=== PATIENT | female | born 1940 | race Caucasian/White ===

== ENCOUNTER 2016-07-10 18:43 | Inpatient (IN) | payer MEDICARE, BC ==
[2016-07-10] MEDS ORDERED: Sodium Chloride 0.9% 5 ML Syringe FLUSH PRN (18:55)
--- NOTE | 2016-07-10 19:13 | EDM.PDOC ---
ED HISTORY OF PRESENT ILLNESS - General Chief Complaint: Chest Pain Stated Complaint: CHEST PAINS Time Seen by Provider: 07/10/16 18:55 Source of Information: Reports: Patient, EMS, EMS notes reviewed History Limitations: Reports: No limitations - History of Present Illness INITIAL COMMENTS - FREE TEXT/NARRATIVE: PT STATES AT 1700 TODAY SHE DEVELOPED PAIN IN LEFT LEG AND WAS HAVING HARD TIME WALKING. CALLED DAUGHTER WHO CONTACTED EMS. WHEN EMS ARRIVED TO HOUSE, PT THEN DEVELOPED CHEST PAIN AND SOB. DESCRIBED HEAVY AND CONSTANT. RELIEVED WITH NITRO. H/O CVA AND LEFT SIDED WEAKNESS. DAUGHTER AT BEDSIDE. DENIES FEVER, FALL , N/V/D, HANSEN, BLURRY VISION, OR DIZZINESS Symptom Onset Date: 07/10/16 Symptom Onset Time: 17:00 Timing/Duration: Reports: Intermittent Severity: mild Location, General: Reports: chest Quality: Reports: Pressure Improves with: Reports: Medication Worsens with: Reports: None Associated Symptoms (General): Reports: no other symptoms Treatments FINANCE ASSISTANT: Reports: Nitroglycerin - Related Data Allergies/ADRs: Allergies Allergy/AdvReac Type Severity Reaction Status Date / Time Latex, Natural Rubber Allergy Rash Verified 07/10/16 19:39 Sulfa (Sulfonamide Allergy Airway Verified 07/10/16 19:39 Antibiotics) Tightness Home Meds: Home Meds Alendronate [Fosamax] 70 mg PO TH 09/20/14 [History] Cholecalciferol (Vitamin D3) [Vitamin D3] 2,000 unit PO DAILY 09/20/14 [History] DULoxetine [Cymbalta] 30 mg PO BID 09/20/14 [History] Docusate Sodium [Colace] 200 mg PO DAILY 09/20/14 [History] atorvaSTATin [Lipitor] 60 mg PO DAILY 09/20/14 [History] LORazepam [Ativan] 0.25 mg PO BID PRN #0 tablet 10/05/14 [Rx] Calcium Carbonate/Vitamin D3 [Calcium 600-Vit D3 800 Tablet] 1 each PO DAILY [History] Aspirin [Halfprin] 81 mg PO BRK 11/07/15 [History] Metoprolol Succinate [Toprol XL 50mg] 1 tab PO DAILY 11/07/15 [History] Misoprostol 200 mcg PO BID 11/07/15 [History] busPIRone [Buspar] 5 mg PO BID 11/07/15 [History] rOPINIRole HCl [Requip] 0.25 mg PO BID 11/07/15 [History] Baclofen [Lioresal] 10 mg PO BEDTIME PRN 02/29/16 [History] Diclofenac Sodium [Voltaren] 50 mg PO BID 02/29/16 [History] Loratadine/Pseudoephedrine [Loratadine-Pseudoephed 10-240] 1 tab PO BEDTIME PRN 02/29/16 [History] Nitroglycerin [Nitrostat] 0.4 mg SL ASDIRECTED PRN 02/29/16 [History] Omeprazole 40 mg PO ACBREAKFAST 02/29/16 [History] oxyCODONE HCl/Acetaminophen [oxyCODONE-Acetaminophen 5-325] 1 tab PO DAILY 02/28 [History] Furosemide [Lasix] 20 mg PO DAILY 07/10/16 [History] Past Medical History HEENT History: Reports: Cataract, Impaired vision, Other (see below) Other HEENT History: 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 Endocrine/Metabolic History: Reports: Osteoporosis Dermatologic History: Reports: None - Infectious Disease History Infectious Disease History: Reports: Chicken pox, Measles, Mumps, Shingles - Past Surgical History Head Surgeries/Procedures: Reports: None HEENT Surgical History: Reports: Cataract surgery Cardiovascular Surgical History: Reports: Coronary artery stent Respiratory Surgical History: Reports: None GI Surgical History: Reports: Appendectomy, Colonoscopy, EGD Female Surgical History: Reports: Hysterectomy, Salpingo-oophorectomy, Other (see below) Other Female Surgeries/Procedures: bladder repair Neurological Surgical History: Reports: None Musculoskeletal Surgical History: Reports: Arthroscopic procedure, Knee replacement Dermatological Surgical History: Reports: None Social & Family History - Family History Family Medical History: Unobtainable HEENT: Reports: None Cardiac: Reports: Hypertension (Son hypertension,) Respiratory: Reports: None GI: Reports: None : Reports: None OBGYN: Reports: None Musculoskeletal: Reports: Osteoporosis (Son) Neurological: Reports: None Psychiatric: Reports: None Endocrine/Metabolic: Reports: None Hematologic: Reports: None Immunologic: Reports: None Dermatologic: Reports: None Oncologic: Reports: Breast (Brother breast cancer,) - Tobacco Use Smoking Status *Q: Never Smoker Second Hand Smoke Exposure: Yes - Caffeine Use Caffeine Use: Reports: Coffee, Soda, Tea - Alcohol Use Days Per Week of Alcohol Use: 1 Number of Drinks Per Day: 1 Total Drinks Per Week: 1 - Recreational Drug Use Recreational Drug Use: No - Living Situation & Occupation Living situation: Reports: , alone ED ROS GENERAL - Review of Systems Review Of Systems: ROS reveals no pertinent complaints other than HPI. Constitutional: Reports: no symptoms HEENT: Reports: No symptoms Respiratory: Reports: No Symptoms Cardiovascular: Reports: Chest pain Endocrine: Reports: no symptoms GI/Abdominal: Reports: No symptoms : Reports: no symptoms Musculoskeletal: Reports: leg pain Skin: Reports: no symptoms Neurological: Reports: Weakness (LEFT SIDED OF CHRONIC NATURE) Psychiatric: Reports: No symptoms Hematologic/Lymphatic: Reports: no symptoms Immunologic: Reports: no symptoms ED EXAM, GENERAL - Physical Exam Exam: See Below Exam Limited By: No limitations General Appearance: alert, WD/WN, no apparent distress Eye Exam: bilateral eye: normal inspection Throat/Mouth: Normal inspection, Normal oropharynx, No airway compromise Head: atraumatic, normocephalic Respiratory/Chest: no respiratory distress, lungs clear, normal breath sounds, no accessory muscle use, chest non-tender Cardiovascular: regular rate, rhythm, no murmur GI/Abdominal: normal bowel sounds, soft, non tender, no organomegaly, no distention, no abnormal bruit, no mass Back Exam: normal inspection. No: CVA tenderness (L), CVA tenderness (R) Extremities: normal inspection, no pedal edema Neurological: alert, oriented, normal cognition Psychiatric: normal affect, normal mood Skin Exam: Warm, Dry, Intact, Normal color, No rash Lymphatic: no adenopathy EKG INTERPRETATION EKG Date: 07/10/16 Time: 19:10 Rhythm: NSR Rate (beats/min): 85 [place]: normal P-wave: present QRS: normal ST-T: normal QT: normal Course - Vital Signs Last Recorded V/S: Last Vital Signs Temp 99.0 F 07/10/16 18:49 Pulse 89 07/10/16 18:49 Resp 18 07/10/16 18:49 BP 124/29 L 07/10/16 18:49 Pulse Ox 97 07/10/16 18:49 - Orders/Labs/Meds Orders: Active Orders 24 hr Category Date Time Status Cardiac Monitoring [RC] . DIRECTED Care 07/10/16 18:55 Ordered EKG Documentation Completion [RC] STAT Care 07/10/16 18:55 Ordered Peripheral IV Care [RC] . DIRECTED Care 07/10/16 18:56 Ordered Chest 1V Frontal [CR] Stat Exams 07/10/16 18:56 Ordered CBC WITH AUTO DIFF [HEME] Stat Lab 07/10/16 18:55 Ordered CKMB [CHEM] Stat Lab 07/10/16 18:55 Ordered COMPREHENSIVE METABOLIC PN,CMP [CHEM] Stat Lab 07/10/16 18:56 Ordered INR,PT,PROTHROMBIN TIME [COAG] Stat Lab 07/10/16 18:55 Ordered LIPASE [CHEM] Stat Lab 07/10/16 18:55 Ordered PTT,PARTIAL THROMBOPLSTIN TIME [COAG] Stat Lab 07/10/16 18:55 Ordered TROPONIN I [CHEM] Stat Lab 07/10/16 18:55 Ordered Sodium Chloride 0.9% [Syrex Flush] Med 07/10/16 18:55 Ordered 5 ml FLUSH Q8HR PRN Peripheral IV Insertion Adult [OM.PC] Stat Oth 07/10/16 18:55 Ordered Saline Lock Insert [OM.PC] Stat Oth 07/10/16 18:55 Ordered Medication Orders Sodium Chloride (Syrex Flush) 5 ml FLUSH Q8HR PRN PRN Reason: Keep Vein Open Meds: Medications Generic Name Dose Route Start Last Admin Trade Name Freq PRN Reason Stop Dose Admin Sodium Chloride 5 ml 07/10/16 18:55 Syrex Flush FLUSH Q8HR PRN Keep Vein Open - Radiology Interpretation Free Text/Narrative:: CXR NEGATIVE FOR ACUTE PROCESS - Re-Assessments/Exams Free Text/Narrative Re-Assessment/Exam: 07/10/16 19:58 PT AFEBRILE, NONTOXIC APPEARING, VSS, PAIN RESOLVED. DISCUSSED CASE WITH DR NEWMAN. WILL ADMIT OBS AND FOLLOW Departure - Departure Time of Disposition: 20:00 Disposition: Home, Self-Care 01 Condition: good Clinical Impression: Atypical chest pain, Chest pain of uncertain etiology Forms: ED Department Discharge - My Orders Last 24 Hours: My Active Orders 07/10/16 18:55 Cardiac Monitoring [RC] . DIRECTED EKG Documentation Completion [RC] STAT CBC WITH AUTO DIFF [HEME] Stat CKMB [CHEM] Stat INR,PT,PROTHROMBIN TIME [COAG] Stat LIPASE [CHEM] Stat PTT,PARTIAL THROMBOPLSTIN TIME [COAG] Stat TROPONIN I [CHEM] Stat Sodium Chloride 0.9% [Syrex Flush] 5 ml FLUSH Q8HR PRN Peripheral IV Insertion Adult [OM.PC] Stat Saline Lock Insert [OM.PC] Stat 07/10/16 18:56 Peripheral IV Care [RC] . DIRECTED Chest 1V Frontal [CR] Stat COMPREHENSIVE METABOLIC PN,CMP [CHEM] Stat - Assessment/Plan Last 24 Hours: My Active Orders 07/10/16 18:55 Cardiac Monitoring [RC] . DIRECTED EKG Documentation Completion [RC] STAT CBC WITH AUTO DIFF [HEME] Stat CKMB [CHEM] Stat INR,PT,PROTHROMBIN TIME [COAG] Stat LIPASE [CHEM] Stat PTT,PARTIAL THROMBOPLSTIN TIME [COAG] Stat TROPONIN I [CHEM] Stat Sodium Chloride 0.9% [Syrex Flush] 5 ml FLUSH Q8HR PRN Peripheral IV Insertion Adult [OM.PC] Stat Saline Lock Insert [OM.PC] Stat 07/10/16 18:56 Peripheral IV Care [RC] . DIRECTED Chest 1V Frontal [CR] Stat COMPREHENSIVE METABOLIC PN,CMP [CHEM] Stat Assessment:: CHEST PAIN Plan: ADMIT OBS TO DR NEWMAN
[2016-07-10 19:41] LABS: CHLORIDE,CL 102 mmol/L (98-115); SODIUM,NA 140 mmol/L (136-145)
[2016-07-10] MEDS: Diclofenac Sodium 50 MG Tab.EC PO SCH ×2 (20:16→22:17)
[2016-07-10] MEDS ORDERED: Loratadine 10 MG Tab PO PRN (21:11)
[2016-07-10] MEDS ORDERED: Baclofen 10 MG Tab PO PRN (21:11)
[2016-07-10] MEDS: Aspirin 81 MG Tab.EC PO SCH (22:18)
[2016-07-11] MEDS: LORazepam 0.5 MG Tab PO PRN ×2 (00:48→17:44)
[2016-07-11] MEDS: Acetaminophen 325 MG Tab PO PRN ×2 (01:17→18:20)
[2016-07-11] MEDS: Cholecalciferol (Vitamin D3) 1,000 Unit Tab PO SCH (08:27)
[2016-07-11] MEDS: Aspirin 81 MG Tab.EC PO SCH (08:27)
[2016-07-11] MEDS: DULoxetine 30 MG Cap PO SCH ×2 (08:28→20:29)
[2016-07-11] MEDS: Docusate Sodium 100 MG Cap PO SCH (08:28)
[2016-07-11] MEDS: Calcium Citrate/Vitamin D3 315 MG-250 Unit Tab PO SCH (08:28)
[2016-07-11] MEDS: Diclofenac Sodium 50 MG Tab.EC PO SCH (08:33)
[2016-07-11] MEDS ORDERED: Nitroglycerin 0.4 MG Tab.SL SL PRN (08:56)
[2016-07-11] MEDS ORDERED: Acetaminophen/oxyCODONE 325-5 MG Tab PO SCH (09:00)
[2016-07-11] MEDS ORDERED: [UNRECOGNIZED DRUG - OTHER] PO SCH (09:00)
[2016-07-11] MEDS ORDERED: Furosemide 20 MG Tab PO SCH (09:00)
[2016-07-11] MEDS ORDERED: CALCIUM CARBONATE PO SCH (09:00)
[2016-07-11] MEDS ORDERED: VITAMIN D3 PO SCH (09:00)
[2016-07-11] MEDS ORDERED: Non-Formulary Medication 1 Each (Cholecalciferol (Vitamin D3) [Vitamin D3] 2,000 UNIT) PO SCH (09:00)
--- NOTE | 2016-07-11 10:18 | PCM.HP ---
H&P History of Present Illness - General Date of Service: 07/11/16 Admit Problem/Dx: Admission Diagnosis/Problem Admission Diagnosis/Problem Chest pain Source of Information: Patient, Old records, RN History Limitations: Reports: No limitations - History of Present Illness Initial Comments - Free Text/Narative: this 76-year-old female patient with an extensive cardiac history with extensive myocardial infarction approximately 2 years ago was transported by ED and was admitted due to left leg pain. She actually called the annulus department yesterday due to pain in her left leg and she was having more of a difficult time walking--she walks with a walker due to history of CVA--however upon ambulance arrival she started having some shortness of breath and chest pain. She described her chest pain is quite heavy constant eventually relieved with nitroglycerin. 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 She had no nausea or vomiting or diarrhea or any dizziness or blurred vision. She was admitted on telemetry.her initial EKG showed sinus rhythm with deep Q waves in inferior leads likely old infarct. Chest x-ray was no acute findings. Middle Chest Pain Score (Numeric/FACES): 7 - Related Data Allergies/Adverse Reactions: Allergies Allergy/AdvReac Type Severity Reaction Status Date / Time Latex, Natural Rubber Allergy Rash Verified 07/10/16 19:39 Sulfa (Sulfonamide Allergy Airway Verified 07/10/16 19:39 Antibiotics) Tightness Home Medications: Home Meds Alendronate [Fosamax] 70 mg PO TH 09/20/14 [History] Cholecalciferol (Vitamin D3) [Vitamin D3] 2,000 unit PO DAILY 09/20/14 [History] DULoxetine [Cymbalta] 30 mg PO BID 09/20/14 [History] Docusate Sodium [Colace] 200 mg PO DAILY 09/20/14 [History] atorvaSTATin [Lipitor] 60 mg PO DAILY 09/20/14 [History] LORazepam [Ativan] 0.25 mg PO BID PRN #0 tablet 10/05/14 [Rx] Calcium Carbonate/Vitamin D3 [Calcium 600-Vit D3 800 Tablet] 1 each PO DAILY [History] Aspirin [Halfprin] 81 mg PO BRK 11/07/15 [History] Metoprolol Succinate [Toprol XL 50mg] 75 tab PO DAILY 11/07/15 [History] Misoprostol 200 mcg PO BID 11/07/15 [History] busPIRone [Buspar] 5 mg PO BID 11/07/15 [History] rOPINIRole HCl [Requip] 0.25 mg PO BID 11/07/15 [History] Baclofen [Lioresal] 10 mg PO BEDTIME PRN 02/29/16 [History] Diclofenac Sodium [Voltaren] 50 mg PO BID 02/29/16 [History] Loratadine/Pseudoephedrine [Loratadine-Pseudoephed 10-240] 1 tab PO BEDTIME PRN 02/29/16 [History] Nitroglycerin [Nitrostat] 0.4 mg SL ASDIRECTED PRN 02/29/16 [History] Omeprazole 40 mg PO ACBREAKFAST 02/29/16 [History] oxyCODONE HCl/Acetaminophen [oxyCODONE-Acetaminophen 5-325] 1 tab PO DAILY 02/28 [History] Furosemide [Lasix] 20 mg PO DAILY 07/10/16 [History] Past Medical History HEENT History: Reports: Cataract, Impaired vision, Other (see below) Other HEENT History: 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 Endocrine/Metabolic History: Reports: Osteoporosis Dermatologic History: Reports: None - Infectious Disease History Infectious Disease History: Reports: Chicken pox, Measles, Mumps, Shingles - Past Surgical History Head Surgeries/Procedures: Reports: None HEENT Surgical History: Reports: Cataract surgery Cardiovascular Surgical History: Reports: Coronary artery stent Respiratory Surgical History: Reports: None GI Surgical History: Reports: Appendectomy, Colonoscopy, EGD Female Surgical History: Reports: Hysterectomy, Salpingo-oophorectomy, Other (see below) Other Female Surgeries/Procedures: bladder repair Neurological Surgical History: Reports: None Musculoskeletal Surgical History: Reports: Arthroscopic procedure, Knee replacement Dermatological Surgical History: Reports: None Social & Family History - Family History HEENT: Reports: None Cardiac: Reports: Hypertension Respiratory: Reports: None GI: Reports: None : Reports: None OBGYN: Reports: None Musculoskeletal: Reports: Osteoporosis Neurological: Reports: None Psychiatric: Reports: None Endocrine/Metabolic: Reports: None Hematologic: Reports: None Immunologic: Reports: None Dermatologic: Reports: None Oncologic: Reports: Breast - Tobacco Use Smoking Status *Q: Never Smoker Second Hand Smoke Exposure: Yes - Caffeine Use Caffeine Use: Reports: Coffee, Soda, Tea - Alcohol Use Days Per Week of Alcohol Use: 1 Number of Drinks Per Day: 1 Total Drinks Per Week: 1 - Recreational Drug Use Recreational Drug Use: No - Living Situation & Occupation Living situation: Reports: , alone H&P Review of Systems - Review of Systems: Review Of Systems: See Below General: Reports: no symptoms HEENT: Reports: no symptoms Pulmonary: Denies: Shortness of Breath, Pleuritic Chest Pain, Cough Cardiovascular: Reports: blood pressure problem Gastrointestinal: Reports: Nausea. Denies: Vomiting Genitourinary: Reports: no symptoms Musculoskeletal: Reports: leg pain (left leg) Skin: Reports: no symptoms Psychiatric: Reports: anxiety Neurological: Reports: Pre-Existing Deficit, Difficulty Walking, Gait Disturbance. Denies: Numbness, Tingling Hematologic/Lymphatic: Reports: easy bleeding, easy bruising Immunologic: Reports: no symptoms Exam - Exam Exam: See Below - Vital Signs Vital Signs: Last Vital Signs Temp 97.8 F 07/11/16 06:24 Pulse 91 07/11/16 06:24 Resp 18 07/11/16 06:24 BP 80/55 L 07/11/16 06:24 Pulse Ox 96 07/11/16 07:30 Weight: 139 lb 6.4 oz - Exam Quality Assessment: No: supplemental oxygen General: alert, oriented, mild distress HEENT: Conjunctiva clear Neck: supple, trachea midline, 2 Lungs: Clear to auscultation, Normal respiratory effort Cardiovascular: regular rate, regular rhythm, normal S1, normal S2 Abdomen: soft. No: distention, rigidity (Female) Exam: Deferred Peripheral Pulses: 2+: radial (L), radial (R) Skin: warm, dry, intact Neurological: sensation intact, other (left-sided) Neuro Extensive - Mental Status: alert, oriented x3, other (Slightly slower speech, chronic for her to do cerebral dyskinesia), dysarthria (Chronic for her ).) Psychiatric: alert, anxious - Patient Data Lab Results last 24 hrs: Laboratory Results - last 24 hr 07/11/16 07/11/16 Range/Units 09:10 09:10 D-Dimer, Quantitative 2290 H (<400) ng/mL Troponin I 0.09 H* (0.00-0.070) ng/mL Result Diagrams: 07/10/16 19:00 07/10/16 19:00 *Q Meaningful Use (ADM) - VTE *Q VTE Criteria *Q: - Stroke *Q Stroke Criteria *Q: - AMI *Q AMI Criteria *Q: Problem List Initiated/Reviewed/Updated: Yes Orders Last 24hrs: Active Orders 24 hr Category Date Time Status Patient Status [ADT] Routine ADT 07/11/16 10:07 Ordered Intake and Output [RC] 0600,1400,2200 Care 07/10/16 21:22 Active Oxygen Therapy [RC] PRN Care 07/10/16 21:20 Active Up to Chair [RC] .PRN Care 07/10/16 21:20 Active VTE/DVT Education [RC] PER UNIT ROUTINE Care 07/10/16 21:20 Active Vital Signs [RC] 0300,0700,1100,1500,1900,2300 Care 07/10/16 21:20 Active 2 Gram Sodium Diet [DIET] Diet 07/11/16 Breakfast Active Chest w Cont [CT] Routine Exams 07/11/16 09:51 Ordered Acetaminophen [Tylenol] Med 07/11/16 00:40 Active 650 mg PO Q4H PRN Acetaminophen/oxyCODONE [Percocet 325-5 MG] Med 07/11/16 09:00 Ordered 1 tab PO DAILY Alendronate [Fosamax] Med 07/13/16 08:00 Active 70 mg PO Th@0800 Aspirin [Halfprin] Med 07/10/16 21:15 Active 81 mg PO BRK Baclofen [Lioresal] Med 07/10/16 21:11 Active 10 mg PO BEDTIME PRN Calcium Citrate/Vitamin D3 [Calcium Citrate + D] Med 07/11/16 09:00 Active 1 tab PO DAILY Cholecalciferol (Vitamin D3) [Vitamin D3] Med 07/11/16 09:00 Active 2,000 units PO DAILY DULoxetine [Cymbalta] Med 07/11/16 09:00 Active 30 mg PO BID Docusate Sodium [Colace] Med 07/11/16 09:00 Active 200 mg PO DAILY Furosemide [Lasix] Med 07/11/16 09:00 Active 20 mg PO DAILY LORazepam [Ativan] Med 07/10/16 21:11 Active 0.25 mg PO BID PRN Loratadine/Pseudoephedrine [Loratadine-Pseudoephed 10- Med 07/10/16 21:11 Pending 240] 1 tab PO BEDTIME PRN Metoprolol Succinate [Toprol XL] Med 07/11/16 09:00 Active 75 mg PO DAILY Misoprostol Med 07/11/16 09:00 Ordered 200 mcg PO BID Nitroglycerin [Nitrostat] Med 07/11/16 08:56 Ordered 0.4 mg SL ASDIRECTED PRN Omeprazole Med 07/11/16 09:30 Active 40 mg PO ACBREAKFAST Ondansetron [Zofran] Med 07/11/16 08:58 Active 4 mg IVPUSH Q4H PRN busPIRone [Buspar] Med 07/11/16 09:00 Ordered 5 mg PO BID rOPINIRole [Requip] Med 07/11/16 09:00 Active 0.25 mg PO BID Medication Orders Acetaminophen (Tylenol) 650 mg PO Q4H PRN PRN Reason: Pain Last Admin: 07/11/16 01:17 Dose: 650 mg Alendronate Sodium (Fosamax) 70 mg PO Th@0800 [facility] Aspirin (Halfprin) 81 mg PO BRK [facility] Last Admin: 07/11/16 08:27 Dose: 81 mg Admin: 07/10/16 22:18 Dose: Not Given Baclofen (Lioresal) 10 mg PO BEDTIME PRN PRN Reason: Muscle Spasm Last Admin: 07/10/16 22:00 Dose: 10 mg Buspirone HCl (Buspar) 5 mg PO BID [facility] Calcium Citrate (Calcium Citrate + D) 1 tab PO DAILY [facility] Last Admin: 07/11/16 08:28 Dose: 1 tab Cholecalciferol (Vitamin D3) 2,000 units PO DAILY [facility] Last Admin: 07/11/16 08:27 Dose: 2,000 units Diclofenac Sodium (Voltaren) 50 mg PO BID [facility] Last Admin: 07/11/16 08:33 Dose: 50 mg Admin: 07/10/16 22:17 Dose: 50 mg Admin: 07/10/16 20:16 Dose: Not Given Docusate Sodium (Colace) 200 mg PO DAILY [facility] Last Admin: 07/11/16 08:28 Dose: 200 mg Duloxetine HCl (Cymbalta) 30 mg PO BID [facility] Last Admin: 07/11/16 08:28 Dose: 30 mg Furosemide (Lasix) 20 mg PO DAILY [facility] Last Admin: 07/11/16 08:28 Dose: 20 mg Lorazepam (Ativan) 0.25 mg PO BID PRN PRN Reason: Anxiety Last Admin: 07/11/16 00:48 Dose: 0.25 mg Metoprolol Succinate (Toprol Xl) 75 mg PO DAILY [facility] Nitroglycerin (Nitrostat) 0.4 mg SL ASDIRECTED PRN PRN Reason: Chest Pain Non-Formulary Medication (Loratadine/Pseudoephedrine [Loratadine-Pseudoephed 10- 240]) 1 tab PO BEDTIME PRN PRN Reason: Allergies Non-Formulary Medication (Misoprostol) 200 mcg PO BID [facility] Omeprazole (Omeprazole) 40 mg PO ACBREAKFAST [facility] Ondansetron HCl (Zofran) 4 mg IVPUSH Q4H PRN PRN Reason: Nausea/Vomiting Oxycodone/Acetaminophen (Percocet 325-5 Mg) 1 tab PO DAILY [facility] Ropinirole HCl (Requip) 0.25 mg PO BID [facility] Sodium Chloride (Syrex Flush) 5 ml FLUSH Q8HR PRN PRN Reason: Keep Vein Open Assessment/Plan Comment:: HISTORY OF PRESENT ILLNESS this 76-year-old female patient with an extensive cardiac history with extensive myocardial infarction approximately 2 years ago was transported by ED and was admitted due to left leg pain. She actually called the annulus department yesterday due to pain in her left leg and she was having more of a difficult time walking--she walks with a walker due to history of CVA--however upon ambulance arrival she started having some shortness of breath and chest pain. She described her chest pain is quite heavy constant eventually relieved with nitroglycerin. 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 She had no nausea or vomiting or diarrhea or any dizziness or blurred vision. She was admitted on telemetry.her initial EKG showed sinus rhythm with deep Q waves in inferior leads likely old infarct. Chest x-ray was no acute findings. initial cardiac enzyme last night was negative. pharmacy was consulted and patient has not filled her medications in quite some time. Noncompliance on medications--including her antiplatelet Bilinta OTHER USEFUL HISTORY Patient has a significant past medical history of PCI with LAD stents placed in 2012 and 09/2014. October 2015--while hospitalized in [place] she underwent chest CT angiogram and was negative for PE. Her echo showed EF 55 %. Normal systolic function of the left ventricle. The apical anterior, apical septal, apical inferior, apical lateral and apex segments were hypokinetic. Mild pulmonary artery hypertension. Due to wall motion abnormalities she underwent left heart cath on 11/08/15. The left heart demonstrated a right dominant coronary anatomy with mild proximal and mid right coronary artery disease. The LAD stents were patent. There was mild mid LAD disease. Cardiology recommended continuing on aspirin 81 mg daily for life and ticagrelor 90 mg BID for life. Patient was prescribed sublingual nitroglycerin CODE STATUS; full code Update on rounds this morning, patient has ongoing pain left calf, some nausea however no shortness of breath or chest pain. IMPRESSION/PLAN rule out PE; chest CT today Chest pain, rule out myocardial infarction, Troponin slightly elevated. EKG, Lovenox 1 mg per kilo twice a day. EKG shows non-STEMI, non invasive approach Congestive heart failure; (HFpEF); Assess BNP. Echocardiogram--apical anterior, apical septal, apical inferior, apical lateral and apex segments were hypokinetic. Mild pulmonary artery hypertension. Underwent subsequent left heart cath on 11/08/15. The left heart demonstrated a right dominant coronary anatomy with mild proximal and mid right coronary artery disease. The LAD stents were patent. There was mild mid LAD disease. No edema; Coronary artery disease, with possible Angina, stable, Hx of multiple stents, restart her back on metoprolol risk reduction atorvastatin, ticagrelor, ASA 81 mg. will check E. on her recent lipid profile. Stress/GI prophylaxis, continue with PPI therapy SECONDARY ASSESSMENT Restless legs: ropinirole and baclofen GERD: omeprazole Anxiety: continue buspirone, duloxetine, ativan overall plan; due to history of left leg pain with onset of shortness of breath and chest pain, d-dimer was assessed elevated around [address] repeat troponin this morning is slightly elevated--EKG. Could be cardiac straining due to possible PE however Modified [place] criteria probability low. social service consultation and pharmacy consultation due to medication noncompliance. anticoagulant, change to inpatient status. Continue with telemetry. Monitor and assess and trend troponin.
[2016-07-11] MEDS: Ondansetron 4 MG/2 ML SDV IVPUSH PRN ×2 (10:19→17:44)
[2016-07-11] MEDS ORDERED: Sodium Chloride 0.9% 50 ML SDV FLUSH SCH ×2 (11:15)
[2016-07-11] MEDS ORDERED: Atropine 0.1 MG/ML 10 ML Syringe IVPUSH PRN (11:36)
[2016-07-11] MEDS ORDERED: EPINEPHrine 1:10,000 1 MG/10 ML Syringe IVPUSH PRN (11:36)
[2016-07-11] MEDS ORDERED: Lidocaine 2% 100 MG/5 ML Syringe IVPUSH PRN (11:36)
[2016-07-11] MEDS: Metoprolol Succinate 50 MG Tab.ER PO SCH (11:48)
[2016-07-11] MEDS: Iopamidol 755 Mg/ML 75 ML Bottle IVPUSH ONE ×2 (11:49→13:35)
[2016-07-11] MEDS: Omeprazole 20 MG Cap.CR PO SCH (11:54)
[2016-07-11] MEDS: rOPINIRole 0.25 MG Tab PO SCH ×2 (11:54→20:30)
[2016-07-11] MEDS: Enoxaparin 60 MG/0.6 ML Syringe SUBCUT SCH ×2 (11:54→20:30)
[2016-07-11] MEDS: busPIRone 5 MG Tab PO SCH ×2 (13:02→20:29)
[2016-07-11] MEDS: Misoprostol 100 MCG Tab PO SCH (14:24)
[2016-07-12] MEDS: Acetaminophen 325 MG Tab PO PRN ×4 (03:29→21:34)
[2016-07-12] MEDS: Omeprazole 20 MG Cap.CR PO SCH (06:09)
[2016-07-12 07:59] LABS: CHLORIDE,CL 97 mmol/L (98-115); SODIUM,NA 135 mmol/L (136-145)
[2016-07-12] MEDS: Calcium Citrate/Vitamin D3 315 MG-250 Unit Tab PO SCH (08:27)
[2016-07-12] MEDS: Aspirin 81 MG Tab.EC PO SCH (08:27)
[2016-07-12] MEDS: busPIRone 5 MG Tab PO SCH ×2 (08:27→21:32)
[2016-07-12] MEDS: Docusate Sodium 100 MG Cap PO SCH (08:27)
[2016-07-12] MEDS: Enoxaparin 60 MG/0.6 ML Syringe SUBCUT SCH (08:28)
[2016-07-12] MEDS: DULoxetine 30 MG Cap PO SCH ×2 (08:28→21:33)
[2016-07-12] MEDS: Metoprolol Succinate 50 MG Tab.ER PO SCH (08:29)
[2016-07-12] MEDS: rOPINIRole 0.25 MG Tab PO SCH ×2 (08:29→21:33)
[2016-07-12] MEDS: Cholecalciferol (Vitamin D3) 1,000 Unit Tab PO SCH (08:30)
--- NOTE | 2016-07-12 10:10 | PCM.PN ---
- General Info Date of Service: 07/12/16 Functional Status: Reports: new symptoms (quite nauseous today, no chest pain nurses report/fever last night blood cultures drawn afebrile this morning) - Review of Systems General: Reports: Fever. Denies: Fatigue, Chills, Appetite (although nauseous she did eat a little breakfast) HEENT: Reports: no symptoms Pulmonary: Reports: cough (mild cough) Cardiovascular: Reports: No Symptoms Gastrointestinal: Reports: Decreased appetite, Nausea, Vomiting. Denies: Abdominal pain, Constipation, Diarrhea Genitourinary: Reports: no symptoms Musculoskeletal: Reports: back pain Skin: Reports: other (flush facial cheeks--nurses stated sun exposed and allher trip and fall that you can. Her head or) Neurological: Reports: Pre-Existing Deficit, Difficulty Walking, Gait Disturbance. Denies: Confusion, Dizziness, Headache, Change in Speech ( previous stroke with some present on admission dysarthria) Psychiatric: Reports: no symptoms - Patient Data Vitals - most recent: Last Vital Signs Temp 98.9 F 07/12/16 06:32 Pulse 113 H 07/12/16 08:29 Resp 20 07/12/16 06:32 BP 118/55 L 07/12/16 08:29 Pulse Ox 94 L 07/12/16 06:32 Weight - most recent: 139 lb 9 oz I&O - last 24 hours: Intake & Output 07/11/16 07/12/16 07/12/16 22:59 06:59 14:59 Intake Total 300 Balance 300 Lab Results last 24 hrs: Laboratory Results - last 24 hr 07/11/16 07/12/16 07/12/16 Range/Units 16:45 07:20 07:20 WBC 8.4 (5.0-10.0) 10^3/uL RBC 3.28 L (3.80-5.50) 10^6/uL Hgb 10.4 L (12.0-16.0) g/dL Hct 31.5 L (37.0-47.0) % MCV 96.1 H (82.0-92.0) fL MCH 31.9 H (27.0-31.0) pg MCHC 33.2 (32.0-36.0) g/dL RDW 13.0 (11.5-14.5) % Plt Count 186 (150-300) 10^3/uL MPV 7.9 (7.4-10.4) fL Neut % (Auto) 92.6 H (50.0-70.0) % Lymph % (Auto) 4.3 L (20.0-40.0) % Vernon % (Auto) 2.6 (2.0-8.0) % Eos % (Auto) 0.4 L (1.0-3.0) % Baso % (Auto) 0.1 (0.0-1.0) % Neut # (Auto) 7.8 H (2.5-7.0) 10^3/uL Lymph # (Auto) 0.4 L (1.0-4.0) 10^3/uL Vernon # (Auto) 0.2 (0.1-0.8) 10^3/uL Eos # (Auto) 0.0 L (0.1-0.3) 10^3/uL Baso # (Auto) 0.0 (0.0-0.1) 10^3/uL Sodium 135 L (136-145) mmol/L Potassium 3.7 (3.3-5.3) mmol/L Chloride 97 L (98-115) mmol/L Carbon Dioxide 26.2 (21.0-32.0) mmol/L BUN 24 (6-25) mg/dL Creatinine 0.87 (0.51-1.17) mg/dL Est Cr Clr Drug Dosing 46.93 mL/min Estimated GFR (MDRD) > 60 mL/min Glucose 118 H (70-110) mg/dL Calcium 8.8 (8.7-10.3) mg/dL Troponin I 0.05 < 0.04 (0.00-0.070) ng/mL Med Orders - Current: Current Medications Acetaminophen (Tylenol) 650 mg PO Q4H PRN PRN Reason: Pain Last Admin: 07/12/16 08:40 Dose: 650 mg Alendronate Sodium (Fosamax) 70 mg PO Th@0600 RICK Aspirin (Halfprin) 81 mg PO BRK RICK Last Admin: 07/12/16 08:27 Dose: 81 mg Atropine Sulfate (Atropine 0.1 Mg/Ml) 0 mg IVPUSH ASDIRECTED PRN PRN Reason: Heart Baclofen (Lioresal) 10 mg PO BEDTIME PRN PRN Reason: Muscle Spasm Last Admin: 07/10/16 22:00 Dose: 10 mg Buspirone HCl (Buspar) 5 mg PO BID [facility] Last Admin: 07/12/16 08:27 Dose: 5 mg Calcium Citrate (Calcium Citrate + D) 1 tab PO DAILY [facility] Last Admin: 07/12/16 08:27 Dose: 1 tab Cholecalciferol (Vitamin D3) 2,000 units PO DAILY [facility] Last Admin: 07/12/16 08:30 Dose: 2,000 units Diclofenac Sodium (Voltaren) 50 mg PO BID [facility] Last Admin: 07/11/16 08:33 Dose: 50 mg Docusate Sodium (Colace) 200 mg PO DAILY [facility] Last Admin: 07/12/16 08:27 Dose: 200 mg Duloxetine HCl (Cymbalta) 30 mg PO BID [facility] Last Admin: 07/12/16 08:28 Dose: 30 mg Epinephrine HCl (Epinephrine 1:10,000) 1 mg IVPUSH ASDIRECTED PRN PRN Reason: Heart Lidocaine HCl (Xylocaine 2%) 0 mg IVPUSH ASDIRECTED PRN PRN Reason: Heart Loratadine (Claritin) 10 mg PO BEDTIME PRN PRN Reason: Allergies Lorazepam (Ativan) 0.25 mg PO BID PRN PRN Reason: Anxiety Last Admin: 07/11/16 17:44 Dose: 0.25 mg Metoprolol Succinate (Toprol Xl) 75 mg PO DAILY [facility] Last Admin: 07/12/16 08:29 Dose: 75 mg Misoprostol (Cytotec) 200 mcg PO BID [facility] Last Admin: 07/11/16 14:24 Dose: Not Given Nitroglycerin (Nitrostat) 0.4 mg SL ASDIRECTED PRN PRN Reason: Chest Pain Omeprazole (Omeprazole) 40 mg PO ACBREAKFAST [facility] Last Admin: 07/12/16 06:09 Dose: 40 mg Ondansetron HCl (Zofran) 4 mg IVPUSH Q4H PRN PRN Reason: Nausea/Vomiting Last Admin: 07/11/16 17:44 Dose: 4 mg Ropinirole HCl (Requip) 0.25 mg PO BID [facility] Last Admin: 07/12/16 08:29 Dose: 0.25 mg Sodium Chloride (Syrex Flush) 5 ml FLUSH Q8HR PRN PRN Reason: Keep Vein Open Discontinued Medications Enoxaparin Sodium (Lovenox) 60 mg SUBCUT BID [facility] Last Admin: 07/12/16 08:28 Dose: 60 mg Furosemide (Lasix) 20 mg PO DAILY [facility] Last Admin: 07/11/16 08:28 Dose: 20 mg Iopamidol (Isovue-370 (76%)) 75 ml IVPUSH ONETIME ONE Stop: 07/11/16 11:06 Last Admin: 07/11/16 13:35 Dose: 75 ml Sodium Chloride (Normal Saline) 100 ml FLUSH ASDIRECTED [facility] Stop: 07/11/16 13:00 Last Admin: 07/11/16 13:36 Dose: 100 ml - Exam Quality Assessment: No: supplemental oxygen General: alert, oriented, cooperative, mild distress (slightly distressed due to nausea) Neck: supple Lungs: Clear to auscultation, Normal respiratory effort Cardiovascular: Regular Rate, Regular Rhythm Abdomen: bowel sounds present, soft, no tenderness, no distension Back Exam: No: CVA tenderness (L), CVA tenderness (R) Extremities: no edema Neurological: sensation intact, other (speech dysarthria present on admission history of CVA--left sided deficit) Psy/Mental Status: alert, anxious (slight anxiousness noted) - Problem List Review Problem List Initiated/Reviewed/Updated: Yes - My Orders Last 24 Hours: My Active Orders 07/11/16 10:17 EKG Documentation Completion [RC] ASDIRECTED - Plan Plan:: HISTORY OF PRESENT ILLNESS this 76-year-old female patient with an extensive cardiac history with extensive myocardial infarction approximately 2 years ago was transported by ED and was admitted due to left leg pain. She actually called the annulus department yesterday due to pain in her left leg and she was having more of a difficult time walking--she walks with a walker due to history of CVA--however upon ambulance arrival she started having some shortness of breath and chest pain. She described her chest pain is quite heavy constant eventually relieved with nitroglycerin. 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 She had no nausea or vomiting or diarrhea or any dizziness or blurred vision. She was admitted on telemetry.her initial EKG showed sinus rhythm with deep Q waves in inferior leads likely old infarct. Chest x-ray was no acute findings. initial cardiac enzyme last night was negative. pharmacy was consulted and patient has not filled her medications in quite some time. Noncompliance on medications--including her antiplatelet Bilinta OTHER USEFUL HISTORY Patient has a significant past medical history of PCI with LAD stents placed in 2012 and 09/2014. October 2015--while hospitalized in [place] she underwent chest CT angiogram and was negative for PE. Her echo showed EF 55 %. Normal systolic function of the left ventricle. The apical anterior, apical septal, apical inferior, apical lateral and apex segments were hypokinetic. Mild pulmonary artery hypertension. Due to wall motion abnormalities she underwent left heart cath on 11/08/15. The left heart demonstrated a right dominant coronary anatomy with mild proximal and mid right coronary artery disease. The LAD stents were patent. There was mild mid LAD disease. Cardiology recommended continuing on aspirin 81 mg daily for life and ticagrelor 90 mg BID for life. Patient was prescribed sublingual nitroglycerin CODE STATUS; full code Update on rounds this morning, nausea, temperature at night, now normal, blood cultures taken, no chest pain, chest CT ruled out PE. IMPRESSION/PLAN Leukocytosis, likely prodromal--start emperic Rocephin today rule out PE; chest CT has ruled out. Likely mild non-STEMI type II, troponin now normal. no longer has chest pain. no EKG changes, discontinue Lovenox EKG shows non-STEMI, on aspirin, her dual antiplatelet therapy with brilinta was discontinued after 2 years stents. continue with beta karen Anxiety: continue buspirone, duloxetine, ativan , likely contributable to current admission. change Ativan to scheduled Congestive heart failure; (HFpEF); BNP 613. Echocardiogram--apical anterior, apical septal, apical inferior, apical lateral and apex segments were hypokinetic. Mild pulmonary artery hypertension. Underwent subsequent left heart cath on 11/08/15. The left heart demonstrated a right dominant coronary anatomy with mild proximal and mid right coronary artery disease. The LAD stents were patent. There was mild mid LAD disease. No edema; discuss low-dose LIDA inhibitor on followup Coronary artery disease, with possible Angina, stable, Hx of multiple stents, restart her back on metoprolol risk reduction atorvastatin, ASA 81 mg. Stress/GI prophylaxis, continue with PPI therapy SECONDARY ASSESSMENT Restless legs: ropinirole and baclofen GERD: omeprazolein her and in of site okay overall plan; I am somewhat reticent on discharging her due to fever last night , nausea this morning and elevated neutrophils. However in light of that her white count is down and she has no reactive thrombocytosis. Doubtful if pneumonia or urinary tract involvement--however start emperic abx. Will discontinue her from telemetry however gentle fluids today to control the nausea with medicine and see how she does potential discharge in the a.m.
[2016-07-12] MEDS: LORazepam 0.5 MG Tab PO SCH ×2 (11:14→21:40)
[2016-07-12] MEDS: cefTRIAXone 1 GM Vial IVPUSH SCH (12:17)
[2016-07-12] MEDS: Sodium Chloride 0.9% 1,000 ML IV SCH (12:18)
[2016-07-12] MEDS: Ondansetron 4 MG/2 ML SDV IVPUSH PRN (17:36)
[2016-07-13] MEDS: Acetaminophen 325 MG Tab PO PRN (03:13)
[2016-07-13] MEDS: Sodium Chloride 0.9% 1,000 ML IV SCH ×2 (03:15→19:50)
[2016-07-13] MEDS: Omeprazole 20 MG Cap.CR PO SCH (05:59)
[2016-07-13] MEDS ORDERED: Alendronate 70 MG Tab PO SCH (06:00)
[2016-07-13] MEDS: Enoxaparin 60 MG/0.6 ML Syringe SUBCUT SCH ×2 (09:57→21:08)
[2016-07-13] MEDS: Acetaminophen 650 MG Tab.ER PO SCH ×3 (09:57→21:09)
[2016-07-13] MEDS: DULoxetine 30 MG Cap PO SCH ×2 (09:58→21:08)
[2016-07-13] MEDS: cefTRIAXone 1 GM Vial IVPUSH SCH (09:58)
[2016-07-13] MEDS: Cholecalciferol (Vitamin D3) 1,000 Unit Tab PO SCH (09:58)
[2016-07-13] MEDS: Misoprostol 100 MCG Tab PO SCH ×2 (09:58→21:08)
[2016-07-13] MEDS: Diclofenac Sodium 50 MG Tab.EC PO SCH ×2 (09:58→21:08)
[2016-07-13] MEDS: busPIRone 5 MG Tab PO SCH ×2 (09:59→21:08)
[2016-07-13] MEDS: Aspirin 81 MG Tab.EC PO SCH (09:59)
[2016-07-13] MEDS: Calcium Citrate/Vitamin D3 315 MG-250 Unit Tab PO SCH (09:59)
[2016-07-13] MEDS: LORazepam 0.5 MG Tab PO SCH ×2 (09:59→21:07)
[2016-07-13] MEDS: Docusate Sodium 100 MG Cap PO SCH (09:59)
[2016-07-13] MEDS: Metoprolol Succinate 50 MG Tab.ER PO SCH (10:01)
[2016-07-13] MEDS: rOPINIRole 0.25 MG Tab PO SCH ×2 (10:01→21:08)
--- NOTE | 2016-07-13 11:04 | PCM.PN ---
- General Info Date of Service: 07/13/16 Functional Status: Reports: pain controlled, tolerating diet, other - Review of Systems General: Reports: Fever, Weakness HEENT: Reports: sore throat Pulmonary: Reports: cough. Denies: shortness of breath, pleuritic chest pain, wheezing Cardiovascular: Denies: Chest Pain, Edema Gastrointestinal: Denies: Nausea, Vomiting Genitourinary: Reports: no symptoms Musculoskeletal: Reports: leg pain Skin: Reports: other (bruise bilaterally in her thighs left worse than right with some redness inner thigh left leg) Neurological: Reports: Pre-Existing Deficit, Weakness, Gait Disturbance Psychiatric: Reports: no symptoms - Patient Data Vitals - most recent: Last Vital Signs Temp 96.3 F 07/13/16 06:37 Pulse 94 07/13/16 10:01 Resp 24 H 07/13/16 06:37 BP 104/60 07/13/16 10:01 Pulse Ox 98 07/13/16 06:37 Weight - most recent: 141 lb 9.6 oz I&O - last 24 hours: Intake & Output 07/12/16 07/13/16 07/13/16 22:59 06:59 14:59 Intake Total 803 1170 Output Total 200 300 Balance 603 870 Lab Results last 24 hrs: Laboratory Results - last 24 hr 07/13/16 07/13/16 07/13/16 Range/Units 09:20 09:20 09:20 WBC 6.9 (5.0-10.0) 10^3/uL RBC 2.99 L (3.80-5.50) 10^6/uL Hgb 9.7 L (12.0-16.0) g/dL Hct 28.5 L (37.0-47.0) % MCV 95.3 H (82.0-92.0) fL MCH 32.5 H (27.0-31.0) pg MCHC 34.1 (32.0-36.0) g/dL RDW 12.9 (11.5-14.5) % Plt Count 183 (150-300) 10^3/uL MPV 7.3 L (7.4-10.4) fL Neut % (Auto) 89.3 H (50.0-70.0) % Lymph % (Auto) 5.5 L (20.0-40.0) % Clinch % (Auto) 4.1 (2.0-8.0) % Eos % (Auto) 0.9 L (1.0-3.0) % Baso % (Auto) 0.2 (0.0-1.0) % Neut # (Auto) 6.1 (2.5-7.0) 10^3/uL Lymph # (Auto) 0.4 L (1.0-4.0) 10^3/uL Clinch # (Auto) 0.3 (0.1-0.8) 10^3/uL Eos # (Auto) 0.1 (0.1-0.3) 10^3/uL Baso # (Auto) 0.0 (0.0-0.1) 10^3/uL ESR 94 H (0-20) mm/hr Lactic Acid 2.0 (0.4-2.0) mmol/L Giuliano Results last 24 hrs: Microbiology 07/12/16 03:30 Aerobic Blood Culture - Preliminary Blood - Arm, Right NO GROWTH AFTER 1 DAY Anaerobic Blood Culture - Preliminary 07/12/16 01:40 Aerobic Blood Culture - Preliminary Blood - Arm, Left NO GROWTH AFTER 1 DAY Anaerobic Blood Culture - Preliminary Med Orders - Current: Current Medications Acetaminophen (Tylenol Arthritis Pain) 650 mg PO TID [facility] Last Admin: 07/13/16 09:57 Dose: 650 mg Alendronate Sodium (Fosamax) 70 mg PO Th@0600 [facility] Last Admin: 07/13/16 05:58 Dose: 70 mg Aspirin (Halfprin) 81 mg PO BRK [facility] Last Admin: 07/13/16 09:59 Dose: 81 mg Baclofen (Lioresal) 10 mg PO BEDTIME PRN PRN Reason: Muscle Spasm Last Admin: 07/10/16 22:00 Dose: 10 mg Buspirone HCl (Buspar) 5 mg PO BID [facility] Last Admin: 07/13/16 09:59 Dose: 5 mg Calcium Citrate (Calcium Citrate + D) 1 tab PO DAILY [facility] Last Admin: 07/13/16 09:59 Dose: 1 tab Ceftriaxone Sodium (Rocephin) 1 gm IVPUSH Q24H [facility] Last Admin: 07/13/16 09:58 Dose: 1 gm Cholecalciferol (Vitamin D3) 2,000 units PO DAILY [facility] Last Admin: 07/13/16 09:58 Dose: 2,000 units Diclofenac Sodium (Voltaren) 50 mg PO BID [facility] Last Admin: 07/13/16 09:58 Dose: 50 mg Docusate Sodium (Colace) 200 mg PO DAILY [facility] Last Admin: 07/13/16 09:59 Dose: 200 mg Duloxetine HCl (Cymbalta) 30 mg PO BID [facility] Last Admin: 07/13/16 09:58 Dose: 30 mg Enoxaparin Sodium (Lovenox) 60 mg SUBCUT BID [facility] Last Admin: 07/13/16 09:57 Dose: 60 mg Sodium Chloride (Normal Saline) 1,000 mls @ 65 mls/hr IV ASDIRECTED [facility] Last Admin: 07/13/16 03:15 Dose: 65 mls/hr Piperacillin/Tazobactam/Dextrose (Zosyn In Dextrose Iso-Osmotic 3.375 Gm) 50 mls @ 100 mls/hr IV Q6HR [facility] Loratadine (Claritin) 10 mg PO BEDTIME PRN PRN Reason: Allergies Lorazepam (Ativan) 0.25 mg PO BID [facility] Last Admin: 07/13/16 09:59 Dose: 0.25 mg Metoprolol Succinate (Toprol Xl) 75 mg PO DAILY [facility] Last Admin: 07/13/16 10:01 Dose: 75 mg Misoprostol (Cytotec) 200 mcg PO BID [facility] Last Admin: 07/13/16 09:58 Dose: 200 mcg Nitroglycerin (Nitrostat) 0.4 mg SL ASDIRECTED PRN PRN Reason: Chest Pain Omeprazole (Omeprazole) 40 mg PO ACBREAKFAST [facility] Last Admin: 07/13/16 05:59 Dose: 40 mg Ondansetron HCl (Zofran) 4 mg IVPUSH Q4H PRN PRN Reason: Nausea/Vomiting Last Admin: 07/12/16 17:36 Dose: 4 mg Ropinirole HCl (Requip) 0.25 mg PO BID [facility] Last Admin: 07/13/16 10:01 Dose: 0.25 mg Sodium Chloride (Syrex Flush) 5 ml FLUSH Q8HR PRN PRN Reason: Keep Vein Open Discontinued Medications Acetaminophen (Tylenol) 650 mg PO Q4H PRN PRN Reason: Pain Last Admin: 07/13/16 03:13 Dose: 650 mg Atropine Sulfate (Atropine 0.1 Mg/Ml) 0 mg IVPUSH ASDIRECTED PRN PRN Reason: Heart Enoxaparin Sodium (Lovenox) 60 mg SUBCUT BID [facility] Last Admin: 07/12/16 08:28 Dose: 60 mg Epinephrine HCl (Epinephrine 1:10,000) 1 mg IVPUSH ASDIRECTED PRN PRN Reason: Heart Furosemide (Lasix) 20 mg PO DAILY [facility] Last Admin: 07/11/16 08:28 Dose: 20 mg Iopamidol (Isovue-370 (76%)) 75 ml IVPUSH ONETIME ONE Stop: 07/11/16 11:06 Last Admin: 07/11/16 13:35 Dose: 75 ml Lidocaine HCl (Xylocaine 2%) 0 mg IVPUSH ASDIRECTED PRN PRN Reason: Heart Lorazepam (Ativan) 0.25 mg PO BID PRN PRN Reason: Anxiety Last Admin: 07/11/16 17:44 Dose: 0.25 mg Sodium Chloride (Normal Saline) 100 ml FLUSH ASDIRECTED [facility] Stop: 07/11/16 13:00 Last Admin: 07/11/16 13:36 Dose: 100 ml - Exam Quality Assessment: supplemental oxygen General: alert, oriented Neck: supple, no JVD Lungs: Clear to auscultation, Normal respiratory effort Cardiovascular: Regular Rate, Regular Rhythm Abdomen: bowel sounds present, soft, no tenderness, no distension Back Exam: No: CVA tenderness (L), CVA tenderness (R) Skin: ecchymosis, other (ecchymotic bruise left inner thigh with area of demarcation of erythremia, right inner thigh a mild or however still bruised all resembling straddling injury) Wound/Incisions: erythema Neurological: no new focal deficit Psy/Mental Status: alert, normal affect, normal mood - Problem List Review Problem List Initiated/Reviewed/Updated: Yes - My Orders Last 24 Hours: My Active Orders 07/12/16 10:21 LORazepam [Ativan] 0.25 mg PO BID 07/12/16 10:30 Sodium Chloride 0.9% [Normal Saline] 1,000 ml IV ASDIRECTED 07/12/16 10:45 cefTRIAXone [Rocephin] 1 gm IVPUSH Q24H 07/12/16 16:30 PT Evaluation and Treatment [CONS] Routine 07/12/16 16:45 CULTURE THROAT [RM] Routine 07/13/16 09:00 Discontinue Telemetry Monitoring [Cardiac Monitoring Discontinue] [RC] Click To Edit 07/13/16 09:06 Venous Doppler Lwr Ext Lt [US] Routine Venous Doppler Upr Ext Lt [US] Routine 07/13/16 09:15 Incentive Spirometry [RT Incentive Spirometry] [RC] ASDIRECTED Enoxaparin [Lovenox] 60 mg SUBCUT BID 07/13/16 09:30 Acetaminophen [Tylenol Arthritis Pain] 650 mg PO TID 07/13/16 11:00 Piperacillin/Tazobactam/Dext [Zosyn in Dextrose Iso-Osmotic 3.375 GM] 50 ml IV Q6HR - Plan Plan:: HISTORY OF PRESENT ILLNESS this 76-year-old female patient with an extensive cardiac history with extensive myocardial infarction approximately 2 years ago was transported by ED and was admitted due to left leg pain. She actually called the annulus department yesterday due to pain in her left leg and she was having more of a difficult time walking--she walks with a walker due to history of CVA--however upon ambulance arrival she started having some shortness of breath and chest pain. She described her chest pain is quite heavy constant eventually relieved with nitroglycerin. 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 She had no nausea or vomiting or diarrhea or any dizziness or blurred vision. She was admitted on telemetry.her initial EKG showed sinus rhythm with deep Q waves in inferior leads likely old infarct. Chest x-ray was no acute findings. initial cardiac enzyme last night was negative. pharmacy was consulted and patient has not filled her medications in quite some time. Noncompliance on medications--including her antiplatelet Bilinta OTHER USEFUL HISTORY Patient has a significant past medical history of PCI with LAD stents placed in 2012 and 09/2014. October 2015--while hospitalized in [place] she underwent chest CT angiogram and was negative for PE. Her echo showed EF 55 %. Normal systolic function of the left ventricle. The apical anterior, apical septal, apical inferior, apical lateral and apex segments were hypokinetic. Mild pulmonary artery hypertension. Due to wall motion abnormalities she underwent left heart cath on 11/08/15. The left heart demonstrated a right dominant coronary anatomy with mild proximal and mid right coronary artery disease. The LAD stents were patent. There was mild mid LAD disease. Cardiology recommended continuing on aspirin 81 mg daily for life and ticagrelor 90 mg BID for life. Patient was prescribed sublingual nitroglycerin CODE STATUS; full code Update on rounds this morning, nausea improved, temperature last night, Anaerobic blood cultures positive, bruise bilaterally inner thighs left worse than right with some redness inner thigh left leg--all resembling straddling injury patient can now recollect straddling injury as mechanism of injury at home.no open skin however demarcated erythremia with excessive warmth. IMPRESSION/PLAN Sepsis; positive blood cultures--anaerobic, will add broad-spectrum coverage to Rocephin with Zosyn. uncertain on exact etiology--however in light of her possible cellulitis to her inner thigh, ESR quite elevated at 94 however her leukocytosis improving. no reactive thrombocytosis, no longer febrile, UA looked fairly clean on admission. chest CT no infiltrates noted however mild atelectasis. qSOFA 2/3--RR 28 low BP but >100. hold beta karen Leukocytosis, likely prodromal--start emperic Rocephin today Anemia; hemoglobin 12 on admission now 9.7--with correctly corresponding hematocrit, hyperchromic, macrocytic, without anisocytosis, reviewed her medications and doubtful if drug-induced macrocytosis due to normal hemoglobin and no insulting medications. Rule out PE; chest CT has ruled out. Likely mild non-STEMI type II, troponin now normal. no longer has chest pain. no EKG changes, Continue with Lovenox EKG shows non-STEMI, on aspirin, her dual antiplatelet therapy with brilinta was discontinued after 2 years stents. continue with beta karen since BP is good. Anxiety: continue buspirone, duloxetine, ativan , likely contributable to current admission. changed Ativan to scheduled Congestive heart failure; (HFpEF); BNP 613. Echocardiogram--apical anterior, apical septal, apical inferior, apical lateral and apex segments were hypokinetic. Mild pulmonary artery hypertension. Underwent subsequent left heart cath on 11/08/15. The left heart demonstrated a right dominant coronary anatomy with mild proximal and mid right coronary artery disease. The LAD stents were patent. There was mild mid LAD disease. No edema; discuss low-dose LIDA inhibitor on followup Coronary artery disease, with possible Angina, stable, Hx of multiple stents, risk reduction atorvastatin, ASA 81 mg. Stress/GI prophylaxis, continue with PPI therapy SECONDARY ASSESSMENT Restless legs: ropinirole and baclofen GERD: omeprazolein her and in of site okay
[2016-07-13] MEDS: Piperacillin/Tazobactam/Dext 50 ML IV SCH ×6 (11:42→22:31)
[2016-07-13] MEDS ORDERED: Ketoprofen 12 GM, Menthol 1.8 GM, Trolamine Salicylate/Aloe Vera 46.2 GM TOP PRN ×3 (11:57)
[2016-07-14] MEDS: Omeprazole 20 MG Cap.CR PO SCH ×2 (05:20→06:15)
[2016-07-14] MEDS: Piperacillin/Tazobactam/Dext 50 ML IV SCH ×8 (05:21→22:34)
[2016-07-14] MEDS: busPIRone 5 MG Tab PO SCH ×2 (08:46→22:24)
[2016-07-14] MEDS: Cholecalciferol (Vitamin D3) 1,000 Unit Tab PO SCH (08:46)
[2016-07-14] MEDS: Diclofenac Sodium 50 MG Tab.EC PO SCH ×2 (08:46→22:26)
[2016-07-14] MEDS: Misoprostol 100 MCG Tab PO SCH ×2 (08:46→22:23)
[2016-07-14] MEDS: DULoxetine 30 MG Cap PO SCH ×2 (08:47→22:23)
[2016-07-14] MEDS: Aspirin 81 MG Tab.EC PO SCH (08:47)
[2016-07-14] MEDS: rOPINIRole 0.25 MG Tab PO SCH ×2 (08:47→22:24)
[2016-07-14] MEDS: Acetaminophen 650 MG Tab.ER PO SCH ×3 (08:47→22:24)
[2016-07-14] MEDS: Docusate Sodium 100 MG Cap PO SCH (08:48)
[2016-07-14] MEDS: Calcium Citrate/Vitamin D3 315 MG-250 Unit Tab PO SCH (08:48)
[2016-07-14] MEDS: Enoxaparin 60 MG/0.6 ML Syringe SUBCUT SCH (08:51)
[2016-07-14] MEDS: LORazepam 0.5 MG Tab PO SCH ×2 (09:10→22:26)
[2016-07-14 09:50] LABS: CHLORIDE,CL 104 mmol/L (98-115); SODIUM,NA 139 mmol/L (136-145)
--- NOTE | 2016-07-14 11:02 | PCM.PN ---
- General Info Date of Service: 07/14/16 Functional Status: Reports: pain controlled, tolerating diet, incentive spirometry. Denies: new symptoms - Review of Systems General: Reports: Weakness. Denies: Fever HEENT: Reports: no symptoms Pulmonary: Reports: no symptoms Cardiovascular: Reports: No Symptoms Gastrointestinal: Reports: No symptoms Genitourinary: Reports: no symptoms Musculoskeletal: Reports: leg pain (Leg pain improving her left side) Skin: Reports: rash (Inner thighs slight rash however improving) Neurological: Reports: Pre-Existing Deficit, Difficulty Walking, Weakness, Gait Disturbance. Denies: Confusion, Dizziness, Headache, Numbness, Paresthesia, Seizure Psychiatric: Reports: no symptoms - Patient Data Vitals - most recent: Last Vital Signs Temp 96.5 F 07/14/16 06:59 Pulse 99 07/14/16 06:59 Resp 16 07/14/16 06:59 BP 104/55 L 07/14/16 06:59 Pulse Ox 95 07/14/16 07:10 Weight - most recent: 139 lb 6.4 oz I&O - last 24 hours: Intake & Output 07/13/16 07/14/16 07/14/16 22:59 06:59 14:59 Intake Total 1287 545 Output Total 400 Balance 1287 145 Lab Results last 24 hrs: Laboratory Results - last 24 hr 07/13/16 07/13/16 07/13/16 Range/Units 11:50 11:50 11:50 WBC (5.0-10.0) 10^3/uL RBC (3.80-5.50) 10^6/uL Hgb (12.0-16.0) g/dL Hct (37.0-47.0) % MCV (82.0-92.0) fL MCH (27.0-31.0) pg MCHC (32.0-36.0) g/dL RDW (11.5-14.5) % Plt Count (150-300) 10^3/uL MPV (7.4-10.4) fL Neut % (Auto) (50.0-70.0) % Lymph % (Auto) (20.0-40.0) % Horry % (Auto) (2.0-8.0) % Eos % (Auto) (1.0-3.0) % Baso % (Auto) (0.0-1.0) % Neut # (Auto) (2.5-7.0) 10^3/uL Lymph # (Auto) (1.0-4.0) 10^3/uL Horry # (Auto) (0.1-0.8) 10^3/uL Eos # (Auto) (0.1-0.3) 10^3/uL Baso # (Auto) (0.0-0.1) 10^3/uL Sodium (136-145) mmol/L Potassium (3.3-5.3) mmol/L Chloride (98-115) mmol/L Carbon Dioxide (21.0-32.0) mmol/L BUN (6-25) mg/dL Creatinine (0.51-1.17) mg/dL Est Cr Clr Drug Dosing mL/min Estimated GFR (MDRD) mL/min Glucose (70-110) mg/dL Calcium (8.7-10.3) mg/dL Iron 10 L (40-150) ug/dL TIBC 279 (261-478) ug/dL Transferrin 199 (192-382) mg/dL Transferrin % Sat 3.6 L (20.0-50.0) % Ferritin 196 (11-307) ng/mL Vitamin B12 1109 H (180-914) pg/mL Folate 16.1 ng/mL 07/14/16 07/14/16 Range/Units 09:15 09:15 WBC 5.3 (5.0-10.0) 10^3/uL RBC 2.99 L (3.80-5.50) 10^6/uL Hgb 9.7 L (12.0-16.0) g/dL Hct 28.4 L (37.0-47.0) % MCV 94.9 H (82.0-92.0) fL MCH 32.5 H (27.0-31.0) pg MCHC 34.2 (32.0-36.0) g/dL RDW 13.0 (11.5-14.5) % Plt Count 211 (150-300) 10^3/uL MPV 7.1 L (7.4-10.4) fL Neut % (Auto) 83.3 H (50.0-70.0) % Lymph % (Auto) 8.0 L (20.0-40.0) % Horry % (Auto) 5.6 (2.0-8.0) % Eos % (Auto) 2.8 (1.0-3.0) % Baso % (Auto) 0.3 (0.0-1.0) % Neut # (Auto) 4.5 (2.5-7.0) 10^3/uL Lymph # (Auto) 0.4 L (1.0-4.0) 10^3/uL Horry # (Auto) 0.3 (0.1-0.8) 10^3/uL Eos # (Auto) 0.1 (0.1-0.3) 10^3/uL Baso # (Auto) 0.0 (0.0-0.1) 10^3/uL Sodium 139 (136-145) mmol/L Potassium 3.4 (3.3-5.3) mmol/L Chloride 104 (98-115) mmol/L Carbon Dioxide 23.5 (21.0-32.0) mmol/L BUN 15 (6-25) mg/dL Creatinine 0.80 (0.51-1.17) mg/dL Est Cr Clr Drug Dosing 51.03 mL/min Estimated GFR (MDRD) > 60 mL/min Glucose 144 H (70-110) mg/dL Calcium 7.8 L (8.7-10.3) mg/dL Iron (40-150) ug/dL TIBC (261-478) ug/dL Transferrin (192-382) mg/dL Transferrin % Sat (20.0-50.0) % Ferritin (11-307) ng/mL Vitamin B12 (180-914) pg/mL Folate ng/mL Giuliano Results last 24 hrs: Microbiology 07/12/16 03:30 Aerobic Blood Culture - Preliminary Blood - Arm, Right Staphylococcus Aureus Anaerobic Blood Culture - Preliminary Staphylococcus Aureus 07/12/16 01:40 Aerobic Blood Culture - Preliminary Blood - Arm, Left Staphylococcus Aureus Anaerobic Blood Culture - Preliminary Staphylococcus Aureus Med Orders - Current: Current Medications Acetaminophen (Tylenol Arthritis Pain) 650 mg PO TID [facility] Last Admin: 07/14/16 08:47 Dose: 650 mg Alendronate Sodium (Fosamax) 70 mg PO Th@0600 [facility] Last Admin: 07/13/16 05:58 Dose: 70 mg Aspirin (Halfprin) 81 mg PO BRK [facility] Last Admin: 07/14/16 08:47 Dose: 81 mg Baclofen (Lioresal) 10 mg PO BEDTIME PRN PRN Reason: Muscle Spasm Last Admin: 07/10/16 22:00 Dose: 10 mg Buspirone HCl (Buspar) 5 mg PO BID [facility] Last Admin: 07/14/16 08:46 Dose: 5 mg Calcium Citrate (Calcium Citrate + D) 1 tab PO DAILY [facility] Last Admin: 07/14/16 08:48 Dose: 1 tab Ceftriaxone Sodium (Rocephin) 1 gm IVPUSH Q24H [facility] Last Admin: 07/13/16 09:58 Dose: 1 gm Cholecalciferol (Vitamin D3) 2,000 units PO DAILY [facility] Last Admin: 07/14/16 08:46 Dose: 2,000 units Ketoprofen 12 gm/ Menthol 1.8 gm/ Trolamine Salicylate 46.2 gm 0 gm TOP TID PRN PRN Reason: pain Diclofenac Sodium (Voltaren) 50 mg PO BID [facility] Last Admin: 07/14/16 08:46 Dose: 50 mg Docusate Sodium (Colace) 200 mg PO DAILY [facility] Last Admin: 07/14/16 08:48 Dose: 200 mg Duloxetine HCl (Cymbalta) 30 mg PO BID [facility] Last Admin: 07/14/16 08:47 Dose: 30 mg Enoxaparin Sodium (Lovenox) 40 mg SUBCUT Q24H [facility] Sodium Chloride (Normal Saline) 1,000 mls @ 65 mls/hr IV ASDIRECTED [facility] Last Admin: 07/13/16 19:50 Dose: 65 mls/hr Piperacillin/Tazobactam/Dextrose (Zosyn In Dextrose Iso-Osmotic 3.375 Gm) 50 mls @ 100 mls/hr IV Q6HR [facility] Last Admin: 07/14/16 05:21 Dose: 100 mls/hr Loratadine (Claritin) 10 mg PO BEDTIME PRN PRN Reason: Allergies Lorazepam (Ativan) 0.25 mg PO BID [facility] Last Admin: 07/14/16 09:10 Dose: 0.25 mg Metoprolol Succinate (Toprol Xl) 75 mg PO DAILY [facility] Last Admin: 07/13/16 10:01 Dose: 75 mg Misoprostol (Cytotec) 200 mcg PO BID [facility] Last Admin: 07/14/16 08:46 Dose: 200 mcg Nitroglycerin (Nitrostat) 0.4 mg SL ASDIRECTED PRN PRN Reason: Chest Pain Omeprazole (Omeprazole) 40 mg PO ACBREAKFAST [facility] Last Admin: 07/14/16 06:15 Dose: Not Given Ondansetron HCl (Zofran) 4 mg IVPUSH Q4H PRN PRN Reason: Nausea/Vomiting Last Admin: 07/12/16 17:36 Dose: 4 mg Ropinirole HCl (Requip) 0.25 mg PO BID [facility] Last Admin: 07/14/16 08:47 Dose: 0.25 mg Sodium Chloride (Syrex Flush) 5 ml FLUSH Q8HR PRN PRN Reason: Keep Vein Open Discontinued Medications Acetaminophen (Tylenol) 650 mg PO Q4H PRN PRN Reason: Pain Last Admin: 07/13/16 03:13 Dose: 650 mg Atropine Sulfate (Atropine 0.1 Mg/Ml) 0 mg IVPUSH ASDIRECTED PRN PRN Reason: Heart Enoxaparin Sodium (Lovenox) 60 mg SUBCUT BID [facility] Last Admin: 07/12/16 08:28 Dose: 60 mg Enoxaparin Sodium (Lovenox) 60 mg SUBCUT BID [facility] Last Admin: 07/14/16 08:51 Dose: 60 mg Epinephrine HCl (Epinephrine 1:10,000) 1 mg IVPUSH ASDIRECTED PRN PRN Reason: Heart Furosemide (Lasix) 20 mg PO DAILY [facility] Last Admin: 07/11/16 08:28 Dose: 20 mg Iopamidol (Isovue-370 (76%)) 75 ml IVPUSH ONETIME ONE Stop: 07/11/16 11:06 Last Admin: 07/11/16 13:35 Dose: 75 ml Lidocaine HCl (Xylocaine 2%) 0 mg IVPUSH ASDIRECTED PRN PRN Reason: Heart Lorazepam (Ativan) 0.25 mg PO BID PRN PRN Reason: Anxiety Last Admin: 07/11/16 17:44 Dose: 0.25 mg Sodium Chloride (Normal Saline) 100 ml FLUSH ASDIRECTED [facility] Stop: 07/11/16 13:00 Last Admin: 07/11/16 13:36 Dose: 100 ml - Exam Quality Assessment: No: supplemental oxygen General: alert, oriented Neck: supple Lungs: Normal respiratory effort, Crackles (Slight crackles left lower lobe mills). No: Decreased breath sounds Cardiovascular: Regular Rate, Regular Rhythm Abdomen: bowel sounds present, soft, no tenderness, no distension Back Exam: No: CVA tenderness (L), CVA tenderness (R) Extremities: no edema Skin: ecchymosis (Bruising inner thighs from straddling injury, improving,, demarcated erythremia left inner thigh 50% improved in coloration from yesterday ), other Wound/Incisions: erythema improving Neurological: no new focal deficit, other (Dysarthria,--appears cerebellar from previous stroke--present on admission) Psy/Mental Status: alert, normal affect, normal mood - Problem List Review Problem List Initiated/Reviewed/Updated: Yes - My Orders Last 24 Hours: My Active Orders 07/13/16 11:00 Piperacillin/Tazobactam/Dext [Zosyn in Dextrose Iso-Osmotic 3.375 GM] 50 ml IV Q6HR 07/13/16 11:57 Ketoprofen 12 gm Menthol 1.8 gm Trolamine Salicylate/Aloe Vera [Aspercreme 10%] 46.2 gm rup rub to left leg tid prn for pain TOP TID 07/15/16 09:00 Enoxaparin [Lovenox] 40 mg SUBCUT Q24H - Plan Plan:: HISTORY OF PRESENT ILLNESS this 76-year-old female patient with an extensive cardiac history with extensive myocardial infarction approximately 2 years ago was transported by ED and was admitted due to left leg pain. She actually called the annulus department yesterday due to pain in her left leg and she was having more of a difficult time walking--she walks with a walker due to history of CVA--however upon ambulance arrival she started having some shortness of breath and chest pain. She described her chest pain is quite heavy constant eventually relieved with nitroglycerin. 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 She had no nausea or vomiting or diarrhea or any dizziness or blurred vision. She was admitted on telemetry.her initial EKG showed sinus rhythm with deep Q waves in inferior leads likely old infarct. Chest x-ray was no acute findings. initial cardiac enzyme last night was negative. pharmacy was consulted and patient has not filled her medications in quite some time. Noncompliance on medications--including her antiplatelet Bilinta OTHER USEFUL HISTORY Patient has a significant past medical history of PCI with LAD stents placed in 2012 and 09/2014. October 2015--while hospitalized in [place] she underwent chest CT angiogram and was negative for PE. Her echo showed EF 55 %. Normal systolic function of the left ventricle. The apical anterior, apical septal, apical inferior, apical lateral and apex segments were hypokinetic. Mild pulmonary artery hypertension. Due to wall motion abnormalities she underwent left heart cath on 11/08/15. The left heart demonstrated a right dominant coronary anatomy with mild proximal and mid right coronary artery disease. The LAD stents were patent. There was mild mid LAD disease. Cardiology recommended continuing on aspirin 81 mg daily for life and ticagrelor 90 mg BID for life. Patient was prescribed sublingual nitroglycerin CODE STATUS; full code Update on rounds this morning, improvement in overall, no fever through the night for the first time, less redness in her thigh, less nausea. Blood culture showing staph aureus--unknown if oxacillin resistant Bacteremia--staphylococcal aureus, possible MRSA, possible due to cellulitis, due to her history of chest pain on arrival cannot exclude early rule out endocarditis. positive blood cultures--anaerobic, and a uncertain on exact etiology--in light of all this add vancomycin, continue with broad-spectrum coverage of Zosyn until definitive cultures. Discontinue Rocephin. ESR quite elevated at 94 however her leukocytosis improving with normal lactic acid. no reactive thrombocytosis, no longer febrile, UA looked fairly clean on admission. chest CT no infiltrates noted however mild atelectasis. qSOFA 2/3-- RR 28 low BP but >100. holding beta karen. Will need blood culture surveillance Anemia; hemoglobin 12 on admission now 9.7--with correctly corresponding hematocrit, hyperchromic, macrocytic, without anisocytosis, reviewed her medications and doubtful if drug-induced macrocytosis due to normal hemoglobin and no insulting medications. Her circulating iron is low, and although her ferritin is normal I do not think it compensates enough for the acute phase reaction due to her bacteremia--would like to see this greater than 200. In the absence of anisocytosis could possibly be very early form of MARCEL. will check retic % then place on Iron for now. Rule out PE; has ruled out. Likely mild non-STEMI type II, troponin now normal. no longer has chest pain. no EKG changes, change Lovenox to daily. EKG shows non-STEMI, on aspirin, her dual antiplatelet therapy with brilinta was discontinued after 2 years stents. Holding BB since bacteremia; will start back soon. Since bacteremia possible endocarditis etiology will need echocardiogram Anxiety: continue buspirone, duloxetine, ativan , likely contributable to current admission. changed Ativan to scheduled Congestive heart failure; (HFpEF); BNP 613. Echocardiogram--apical anterior, apical septal, apical inferior, apical lateral and apex segments were hypokinetic. Mild pulmonary artery hypertension. Underwent subsequent left heart cath on 11/08/15. The left heart demonstrated a right dominant coronary anatomy with mild proximal and mid right coronary artery disease. The LAD stents were patent. There was mild mid LAD disease. No edema; discuss low-dose LIDA inhibitor on followup Coronary artery disease, with possible Angina, stable, Hx of multiple stents, risk reduction atorvastatin, ASA 81 mg. Stress/GI prophylaxis, continue with PPI therapy SECONDARY ASSESSMENT Restless legs: ropinirole and baclofen GERD: omeprazolein her and in of site okay
[2016-07-14] MEDS: cefTRIAXone 1 GM Vial IVPUSH SCH (11:09)
[2016-07-14] MEDS: Sodium Chloride 0.9% 1,000 ML IV SCH (11:25)
[2016-07-14] MEDS ORDERED: Iron Polysaccharides Complex 150 MG Cap PO SCH (11:30)
[2016-07-14] MEDS: Iron Polysaccharides Complex 150 MG Cap PO SCH (16:27)
[2016-07-15] MEDS: Sodium Chloride 0.9% 1,000 ML IV SCH (04:59)
[2016-07-15] MEDS: Piperacillin/Tazobactam/Dext 50 ML IV SCH ×8 (05:01→22:34)
[2016-07-15] MEDS: Omeprazole 20 MG Cap.CR PO SCH (06:20)
[2016-07-15 07:56] LABS: CHLORIDE,CL 107 mmol/L (98-115); SODIUM,NA 142 mmol/L (136-145)
[2016-07-15] MEDS: Calcium Citrate/Vitamin D3 315 MG-250 Unit Tab PO SCH (09:43)
[2016-07-15] MEDS: busPIRone 5 MG Tab PO SCH ×2 (09:43→21:33)
[2016-07-15] MEDS: Aspirin 81 MG Tab.EC PO SCH (09:43)
[2016-07-15] MEDS: Docusate Sodium 100 MG Cap PO SCH (09:43)
[2016-07-15] MEDS: Enoxaparin 40 MG/0.4 ML Syringe SUBCUT SCH (09:44)
[2016-07-15] MEDS: DULoxetine 30 MG Cap PO SCH ×2 (09:44→21:32)
[2016-07-15] MEDS: rOPINIRole 0.25 MG Tab PO SCH ×2 (09:44→21:33)
[2016-07-15] MEDS: Misoprostol 100 MCG Tab PO SCH ×2 (09:44→21:37)
[2016-07-15] MEDS: Acetaminophen 650 MG Tab.ER PO SCH ×3 (09:45→21:32)
[2016-07-15] MEDS: Cholecalciferol (Vitamin D3) 1,000 Unit Tab PO SCH (09:45)
[2016-07-15] MEDS: Diclofenac Sodium 50 MG Tab.EC PO SCH ×2 (09:45→21:33)
[2016-07-15] MEDS: Metoprolol Succinate 50 MG Tab.ER PO SCH (09:57)
[2016-07-15] MEDS: LORazepam 0.5 MG Tab PO SCH ×2 (09:57→21:37)
[2016-07-15] MEDS: Potassium Chloride 10 MEQ Tab.ER PO SCH (11:46)
[2016-07-15] MEDS: Iron Polysaccharides Complex 150 MG Cap PO SCH (11:46)
--- NOTE | 2016-07-15 12:01 | PCM.PN ---
- General Info Date of Service: 07/15/16 Functional Status: Reports: pain controlled, tolerating diet, ambulating, urinating - Review of Systems General: Denies: Fever, Chills HEENT: Reports: headaches Pulmonary: Reports: cough, sputum. Denies: shortness of breath Cardiovascular: Denies: Chest Pain Gastrointestinal: Reports: Nausea. Denies: Abdominal pain, Decreased appetite, Diarrhea, Vomiting Musculoskeletal: Reports: back pain, leg pain (Left upper leg pain (inner aspect )) Skin: Reports: other (Erythema to left inner leg) Neurological: Denies: Headache - Patient Data Vitals - most recent: Last Vital Signs Temp 98.0 F 07/15/16 06:54 Pulse 98 07/15/16 09:57 Resp 18 07/15/16 06:54 BP 129/66 07/15/16 09:57 Pulse Ox 96 07/15/16 06:54 Weight - most recent: 146 lb 1.6 oz I&O - last 24 hours: Intake & Output 07/14/16 07/15/16 07/15/16 22:59 06:59 14:59 Intake Total 733 585 Output Total 400 400 Balance 333 185 Lab Results last 24 hrs: Laboratory Results - last 24 hr 07/14/16 07/15/16 07/15/16 Range/Units 09:15 07:20 07:20 WBC 5.4 (5.0-10.0) 10^3/uL RBC 2.89 L (3.80-5.50) 10^6/uL Hgb 9.2 L (12.0-16.0) g/dL Hct 27.5 L (37.0-47.0) % MCV 95.2 H (82.0-92.0) fL MCH 31.7 H (27.0-31.0) pg MCHC 33.3 (32.0-36.0) g/dL RDW 13.0 (11.5-14.5) % Plt Count 225 (150-300) 10^3/uL MPV 7.0 L (7.4-10.4) fL Neut % (Auto) 80.4 H (50.0-70.0) % Lymph % (Auto) 9.5 L (20.0-40.0) % [place] % (Auto) 6.3 (2.0-8.0) % Eos % (Auto) 3.4 H (1.0-3.0) % Baso % (Auto) 0.4 (0.0-1.0) % Neut # (Auto) 4.4 (2.5-7.0) 10^3/uL Lymph # (Auto) 0.5 L (1.0-4.0) 10^3/uL [place] # (Auto) 0.3 (0.1-0.8) 10^3/uL Eos # (Auto) 0.2 (0.1-0.3) 10^3/uL Baso # (Auto) 0.0 (0.0-0.1) 10^3/uL Absolute Retic 0.0518 (0.0200-0.1000) Percent Retic 1.7 (0.3-2.2) % Sodium 142 (136-145) mmol/L Potassium 3.1 L (3.3-5.3) mmol/L Chloride 107 (98-115) mmol/L Carbon Dioxide 26.1 (21.0-32.0) mmol/L BUN 9 (6-25) mg/dL Creatinine 0.70 (0.51-1.17) mg/dL Est Cr Clr Drug Dosing 58.33 mL/min Estimated GFR (MDRD) > 60 mL/min Glucose 92 (70-110) mg/dL Calcium 7.6 L (8.7-10.3) mg/dL Total Bilirubin (0.2-1.0) mg/dL Direct Bilirubin (0.0-0.2) mg/dL AST (15-37) U/L ALT (12-78) U/L Alkaline Phosphatase (46-116) IU/L Total Protein (6.4-8.2) g/dL Albumin (3.00-4.80) g/dL TSH, Ultra Sensitive (0.340-4.820) uIU/mL 07/15/16 Range/Units 07:20 WBC (5.0-10.0) 10^3/uL RBC (3.80-5.50) 10^6/uL Hgb (12.0-16.0) g/dL Hct (37.0-47.0) % MCV (82.0-92.0) fL MCH (27.0-31.0) pg MCHC (32.0-36.0) g/dL RDW (11.5-14.5) % Plt Count (150-300) 10^3/uL MPV (7.4-10.4) fL Neut % (Auto) (50.0-70.0) % Lymph % (Auto) (20.0-40.0) % [place] % (Auto) (2.0-8.0) % Eos % (Auto) (1.0-3.0) % Baso % (Auto) (0.0-1.0) % Neut # (Auto) (2.5-7.0) 10^3/uL Lymph # (Auto) (1.0-4.0) 10^3/uL [place] # (Auto) (0.1-0.8) 10^3/uL Eos # (Auto) (0.1-0.3) 10^3/uL Baso # (Auto) (0.0-0.1) 10^3/uL Absolute Retic (0.0200-0.1000) Percent Retic (0.3-2.2) % Sodium (136-145) mmol/L Potassium (3.3-5.3) mmol/L Chloride (98-115) mmol/L Carbon Dioxide (21.0-32.0) mmol/L BUN (6-25) mg/dL Creatinine (0.51-1.17) mg/dL Est Cr Clr Drug Dosing mL/min Estimated GFR (MDRD) mL/min Glucose (70-110) mg/dL Calcium (8.7-10.3) mg/dL Total Bilirubin 0.5 (0.2-1.0) mg/dL Direct Bilirubin 0.3 H (0.0-0.2) mg/dL AST 25 (15-37) U/L ALT 21 (12-78) U/L Alkaline Phosphatase 158 H (46-116) IU/L Total Protein 5.5 L (6.4-8.2) g/dL Albumin 2.03 L (3.00-4.80) g/dL TSH, Ultra Sensitive 2.370 (0.340-4.820) uIU/mL Giuliano Results last 24 hrs: Microbiology 07/12/16 03:30 Aerobic Blood Culture - Final Blood - Arm, Right Staphylococcus Aureus Anaerobic Blood Culture - Final Staphylococcus Aureus 07/12/16 01:40 Aerobic Blood Culture - Final Blood - Arm, Left Staphylococcus Aureus Anaerobic Blood Culture - Final Staphylococcus Aureus 07/12/16 16:45 Throat Culture - Final Throat NORMAL THROAT KEVIN Med Orders - Current: Current Medications Acetaminophen (Tylenol Arthritis Pain) 650 mg PO TID [facility] Last Admin: 07/15/16 09:45 Dose: 650 mg Alendronate Sodium (Fosamax) 70 mg PO Th@0600 [facility] Last Admin: 07/13/16 05:58 Dose: 70 mg Aspirin (Halfprin) 81 mg PO BRK [facility] Last Admin: 07/15/16 09:43 Dose: 81 mg Baclofen (Lioresal) 10 mg PO BEDTIME PRN PRN Reason: Muscle Spasm Last Admin: 07/10/16 22:00 Dose: 10 mg Buspirone HCl (Buspar) 5 mg PO BID [facility] Last Admin: 07/15/16 09:43 Dose: 5 mg Calcium Citrate (Calcium Citrate + D) 1 tab PO DAILY [facility] Last Admin: 07/15/16 09:43 Dose: 1 tab Cholecalciferol (Vitamin D3) 2,000 units PO DAILY [facility] Last Admin: 07/15/16 09:45 Dose: 2,000 units Ketoprofen 12 gm/ Menthol 1.8 gm/ Trolamine Salicylate 46.2 gm 0 gm TOP TID PRN PRN Reason: pain Diclofenac Sodium (Voltaren) 50 mg PO BID [facility] Last Admin: 07/15/16 09:45 Dose: 50 mg Docusate Sodium (Colace) 200 mg PO DAILY [facility] Last Admin: 07/15/16 09:43 Dose: 200 mg Duloxetine HCl (Cymbalta) 30 mg PO BID [facility] Last Admin: 07/15/16 09:44 Dose: 30 mg Enoxaparin Sodium (Lovenox) 40 mg SUBCUT Q24H [facility] Last Admin: 07/15/16 09:44 Dose: 40 mg Sodium Chloride (Normal Saline) 1,000 mls @ 65 mls/hr IV ASDIRECTED [facility] Last Admin: 07/15/16 04:59 Dose: 65 mls/hr Piperacillin/Tazobactam/Dextrose (Zosyn In Dextrose Iso-Osmotic 3.375 Gm) 50 mls @ 100 mls/hr IV Q6HR [facility] Last Admin: 07/15/16 05:01 Dose: 100 mls/hr Vancomycin HCl 1 gm/ Sodium (Chloride) 270 mls @ 180 mls/hr IV Q12H [facility] Last Admin: 07/15/16 09:39 Dose: 180 mls/hr Loratadine (Claritin) 10 mg PO BEDTIME PRN PRN Reason: Allergies Lorazepam (Ativan) 0.25 mg PO BID [facility] Last Admin: 07/15/16 09:57 Dose: 0.25 mg Metoprolol Succinate (Toprol Xl) 75 mg PO DAILY [facility] Last Admin: 07/15/16 09:57 Dose: 75 mg Misoprostol (Cytotec) 200 mcg PO BID [facility] Last Admin: 07/15/16 09:44 Dose: 200 mcg Nitroglycerin (Nitrostat) 0.4 mg SL ASDIRECTED PRN PRN Reason: Chest Pain Omeprazole (Omeprazole) 40 mg PO ACBREAKFAST [facility] Last Admin: 07/15/16 06:20 Dose: 40 mg Ondansetron HCl (Zofran) 4 mg IVPUSH Q4H PRN PRN Reason: Nausea/Vomiting Last Admin: 07/12/16 17:36 Dose: 4 mg Polysaccharide Iron Complex (Ferrex 150) 150 mg PO DAILY@1200 [facility] Last Admin: 07/14/16 16:27 Dose: Not Given Potassium Chloride (Klor-Con 10) 10 meq PO DAILY [facility] Ropinirole HCl (Requip) 0.25 mg PO BID [facility] Last Admin: 07/15/16 09:44 Dose: 0.25 mg Sodium Chloride (Syrex Flush) 5 ml FLUSH Q8HR PRN PRN Reason: Keep Vein Open Vancomycin HCl (Pharmacy To Dose - Vancomycin) 0 dose .XX ASDIRECTED [facility] Discontinued Medications Acetaminophen (Tylenol) 650 mg PO Q4H PRN PRN Reason: Pain Last Admin: 07/13/16 03:13 Dose: 650 mg Atropine Sulfate (Atropine 0.1 Mg/Ml) 0 mg IVPUSH ASDIRECTED PRN PRN Reason: Heart Ceftriaxone Sodium (Rocephin) 1 gm IVPUSH Q24H [facility] Last Admin: 07/14/16 11:09 Dose: 1 gm Enoxaparin Sodium (Lovenox) 60 mg SUBCUT BID [facility] Last Admin: 07/12/16 08:28 Dose: 60 mg Enoxaparin Sodium (Lovenox) 60 mg SUBCUT BID [facility] Last Admin: 07/14/16 08:51 Dose: 60 mg Epinephrine HCl (Epinephrine 1:10,000) 1 mg IVPUSH ASDIRECTED PRN PRN Reason: Heart Furosemide (Lasix) 20 mg PO DAILY [facility] Last Admin: 07/11/16 08:28 Dose: 20 mg Vancomycin HCl 1.25 gm/ Sodium (Chloride) 275 mls @ 183 mls/hr IV ONETIME ONE Stop: 07/14/16 13:30 Last Admin: 07/14/16 12:44 Dose: 183 mls/hr Iopamidol (Isovue-370 (76%)) 75 ml IVPUSH ONETIME ONE Stop: 07/11/16 11:06 Last Admin: 07/11/16 13:35 Dose: 75 ml Lidocaine HCl (Xylocaine 2%) 0 mg IVPUSH ASDIRECTED PRN PRN Reason: Heart Lorazepam (Ativan) 0.25 mg PO BID PRN PRN Reason: Anxiety Last Admin: 07/11/16 17:44 Dose: 0.25 mg Polysaccharide Iron Complex (Ferrex 150) 150 mg PO DAILY [facility] Sodium Chloride (Normal Saline) 100 ml FLUSH ASDIRECTED [facility] Stop: 07/11/16 13:00 Last Admin: 07/11/16 13:36 Dose: 100 ml - Exam Quality Assessment: DVT prophylaxis (Score of 3-lovenox). No: supplemental oxygen General: alert, oriented, cooperative, no acute distress Lungs: Clear to auscultation, Normal respiratory effort Cardiovascular: Regular Rate, Regular Rhythm, No Murmurs Abdomen: bowel sounds present, soft, tenderness (generalized) Skin: warm, dry, other (slight-mild erythema and warmth noted to left inner thigh-improved from markings) Neurological: normal speech Psy/Mental Status: alert, normal affect, normal mood - Problem List Review Problem List Initiated/Reviewed/Updated: Yes - My Orders Last 24 Hours: My Active Orders 07/15/16 11:00 Potassium Chloride [Klor-Con 10] 10 meq PO DAILY 07/15/16 11:01 Vital Signs [RC] 0700,1500,2300 07/16/16 05:11 BMP [BASIC METABOLIC PANEL,BMP] [CHEM] AM - Plan Plan:: PRIMARY ASSESSMENT/PLAN: Bacteremia, exact etiology unknown-possible left upper leg cellulitis. Cannot rule out early endocarditis with initial presentation of chest pain. Blood cultures x 2 reveal staphylococcus aureus in aerobic and anaerobic bottles. Throat culture revealed normal kevin. Chest x-ray negative. Chest CT negative for PE, but did show mild atelectasis-patient able to get IS to 1000 L. Venous ultrasound of left lower extremity negative for DVT. UA negative. WBC has remained normal-most recent WBC of 5.4 with left shift. Lactic acid was normal. She is afebrile. Continue IV vancomycin and zosyn. Patient will need blood culture surveillance. Discontinue IVFs. Hypokalemia. K 3.1. No diarrhea and not on diuretic. Replace with oral potassium 10 mEq daily. Repeat BMP in AM. Anemia, hyperchromic macrocytic without anisocytosis and/or early form of iron deficiency anemia. TSH 2.3. AST and ALT normal. ALK phos elevated at 158-could be cause of macrocytic anemia. WBC and platelets normal. Will continue to monitor this. Continue oral iron therapy as total iron low, but reticulocyte count normal. Will continue to monitor. Rule out PE. This was ruled out with chest CT. Mild NSTEMI, type 2. Troponin normal and EKG revealed no ST segment elevation. No chest pain now. Continue aspirin. Toprol XL restarted. Pulse 90s and BP adequate. She will need ECHO as soon as available to rule out endocarditis. SECONDARY ASSESSMENT/PLAN: Anxiety, stable. Continue current medication regimen. Congestive heart failure (HFpEF). ECHO (October 2015) ejection fraction 55%, normal systolic function, normal left ventricle size, apical anterior, apical septal, apical inferior, apical lateral and apex segments were hypokinetic. Recent BNP of 613. Not on oral diuretic. Discuss low-dose LIDA inhibitor on follow-up. Coronary artery disease. Had been on Brillinta for 2 years due to stent placement. Left heart cath on 11/08/15 demonstrated right dominant coronary anatomy with mild proximal and mid-right coronary artery disease. LAD stents were patent. There was mild mid-LAD disease. On aspirin. Hyperlipidemia. On lipitor. GERD. Continue omeprazole. Restless leg syndrome. Continue requip and baclofen. DVT prophylaxis. On lovenox. Overall plan: Continue IV antibiotics. Continue to monitor hemodynamic status. She would most likely benefit from 1-2 days more of acute care stay before discharging home or to swing bed status. The plan of care was reviewed with Dr. Kenney. He is in agreement with the plan of care.
[2016-07-15] MEDS ORDERED: Sodium Chloride 0.9% 1,000 ML IV SCH (16:00)
[2016-07-16] MEDS: Piperacillin/Tazobactam/Dext 50 ML IV SCH ×2 (04:50)
[2016-07-16] MEDS: Omeprazole 20 MG Cap.CR PO SCH (06:02)
[2016-07-16 08:28] LABS: CHLORIDE,CL 108 mmol/L (98-115); SODIUM,NA 143 mmol/L (136-145)
[2016-07-16] MEDS: Aspirin 81 MG Tab.EC PO SCH (09:28)
[2016-07-16] MEDS: LORazepam 0.5 MG Tab PO SCH ×2 (09:29→20:42)
[2016-07-16] MEDS: Docusate Sodium 100 MG Cap PO SCH (09:30)
[2016-07-16] MEDS: Misoprostol 100 MCG Tab PO SCH ×2 (09:30→20:42)
[2016-07-16] MEDS: DULoxetine 30 MG Cap PO SCH ×2 (09:30→20:42)
[2016-07-16] MEDS: Calcium Citrate/Vitamin D3 315 MG-250 Unit Tab PO SCH (09:30)
[2016-07-16] MEDS: Enoxaparin 40 MG/0.4 ML Syringe SUBCUT SCH (09:30)
[2016-07-16] MEDS: busPIRone 5 MG Tab PO SCH ×2 (09:30→20:42)
[2016-07-16] MEDS: Potassium Chloride 10 MEQ Tab.ER PO SCH ×2 (09:30→18:06)
[2016-07-16] MEDS: rOPINIRole 0.25 MG Tab PO SCH ×2 (09:31→20:40)
[2016-07-16] MEDS: Acetaminophen 650 MG Tab.ER PO SCH ×3 (09:45→20:41)
[2016-07-16] MEDS: Cholecalciferol (Vitamin D3) 1,000 Unit Tab PO SCH (09:46)
[2016-07-16] MEDS: Diclofenac Sodium 50 MG Tab.EC PO SCH ×2 (09:46→20:42)
[2016-07-16] MEDS: Metoprolol Succinate 50 MG Tab.ER PO SCH (09:48)
[2016-07-16] MEDS ORDERED: Loperamide 2 MG Cap PO PRN (10:56)
--- NOTE | 2016-07-16 11:50 | PCM.PN ---
- General Info Date of Service: 07/16/16 Functional Status: Reports: pain controlled, tolerating diet, urinating, incentive spirometry. Denies: new symptoms - Review of Systems General: Reports: Weakness. Denies: Fever, Chills HEENT: Denies: headaches Pulmonary: Reports: cough. Denies: shortness of breath Cardiovascular: Reports: Dyspnea on Exertion. Denies: Chest Pain Gastrointestinal: Reports: Decreased appetite, Diarrhea (4 loose stools yesterday). Denies: Abdominal pain, Nausea, Vomiting Musculoskeletal: Reports: leg pain (left thigh pain) Skin: Denies: rash Neurological: Denies: Headache - Patient Data Vitals - most recent: Last Vital Signs Temp 97.5 F 07/16/16 07:00 Pulse 90 07/16/16 09:48 Resp 20 07/16/16 07:00 BP 122/61 07/16/16 09:48 Pulse Ox 94 L 07/16/16 07:00 Weight - most recent: 147 lb I&O - last 24 hours: Intake & Output 07/15/16 07/16/16 07/16/16 22:59 06:59 14:59 Intake Total 1000 295 Output Total 400 300 Balance 600 -5 Lab Results last 24 hrs: Laboratory Results - last 24 hr 07/16/16 07/16/16 Range/Units 07:30 07:30 Sodium 143 (136-145) mmol/L Potassium 3.2 L (3.3-5.3) mmol/L Chloride 108 (98-115) mmol/L Carbon Dioxide 25.3 (21.0-32.0) mmol/L BUN 7 (6-25) mg/dL Creatinine 0.63 (0.51-1.17) mg/dL Est Cr Clr Drug Dosing 64.81 mL/min Estimated GFR (MDRD) > 60 mL/min Glucose 93 (70-110) mg/dL Calcium 7.9 L (8.7-10.3) mg/dL Vancomycin Trough 12.3 (10-20) ug/mL Giuliano Results last 24 hrs: Microbiology 07/12/16 03:30 Aerobic Blood Culture - Final Blood - Arm, Right Staphylococcus Aureus Anaerobic Blood Culture - Final Staphylococcus Aureus 07/12/16 01:40 Aerobic Blood Culture - Final Blood - Arm, Left Staphylococcus Aureus Anaerobic Blood Culture - Final Staphylococcus Aureus 07/12/16 16:45 Throat Culture - Final Throat NORMAL THROAT [place] Med Orders - Current: Current Medications Acetaminophen (Tylenol Arthritis Pain) 650 mg PO TID [facility] Last Admin: 07/16/16 09:45 Dose: 650 mg Alendronate Sodium (Fosamax) 70 mg PO Th@0600 [facility] Last Admin: 07/13/16 05:58 Dose: 70 mg Aspirin (Halfprin) 81 mg PO BRK [facility] Last Admin: 07/16/16 09:28 Dose: 81 mg Baclofen (Lioresal) 10 mg PO BEDTIME PRN PRN Reason: Muscle Spasm Last Admin: 07/10/16 22:00 Dose: 10 mg Buspirone HCl (Buspar) 5 mg PO BID [facility] Last Admin: 07/16/16 09:30 Dose: 5 mg Calcium Citrate (Calcium Citrate + D) 1 tab PO DAILY [facility] Last Admin: 07/16/16 09:30 Dose: 1 tab Cholecalciferol (Vitamin D3) 2,000 units PO DAILY [facility] Last Admin: 07/16/16 09:46 Dose: 2,000 units Ketoprofen 12 gm/ Menthol 1.8 gm/ Trolamine Salicylate 46.2 gm 0 gm TOP TID PRN PRN Reason: pain Diclofenac Sodium (Voltaren) 50 mg PO BID [facility] Last Admin: 07/16/16 09:46 Dose: 50 mg Docusate Sodium (Colace) 200 mg PO DAILY [facility] Last Admin: 07/16/16 09:30 Dose: Not Given Duloxetine HCl (Cymbalta) 30 mg PO BID [facility] Last Admin: 07/16/16 09:30 Dose: 30 mg Enoxaparin Sodium (Lovenox) 40 mg SUBCUT Q24H [facility] Last Admin: 07/16/16 09:30 Dose: 40 mg Vancomycin HCl 1 gm/ Sodium (Chloride) 270 mls @ 180 mls/hr IV Q12H [facility] Last Admin: 07/16/16 09:16 Dose: 180 mls/hr Lactobacillus Acidophilus/Rhamnosus (Multi-[place]ec[place] Plus) 1 cap PO DAILY [facility] Loperamide HCl (Imodium) 2 mg PO ASDIRECTED PRN PRN Reason: Diarrhea Loratadine (Claritin) 10 mg PO BEDTIME PRN PRN Reason: Allergies Lorazepam (Ativan) 0.25 mg PO BID [facility] Last Admin: 07/16/16 09:29 Dose: 0.25 mg Metoprolol Succinate (Toprol Xl) 75 mg PO DAILY [facility] Last Admin: 07/16/16 09:48 Dose: 75 mg Misoprostol (Cytotec) 200 mcg PO BID [facility] Last Admin: 07/16/16 09:30 Dose: 200 mcg Nitroglycerin (Nitrostat) 0.4 mg SL ASDIRECTED PRN PRN Reason: Chest Pain Omeprazole (Omeprazole) 40 mg PO ACBREAKFAST [facility] Last Admin: 07/16/16 06:02 Dose: 40 mg Ondansetron HCl (Zofran) 4 mg IVPUSH Q4H PRN PRN Reason: Nausea/Vomiting Last Admin: 07/12/16 17:36 Dose: 4 mg Polysaccharide Iron Complex (Ferrex 150) 150 mg PO DAILY@1200 [facility] Last Admin: 07/15/16 11:46 Dose: 150 mg Potassium Chloride (Klor-Con 10) 10 meq PO BIDNCALS [facility] Ropinirole HCl (Requip) 0.25 mg PO BID [facility] Last Admin: 07/16/16 09:31 Dose: 0.25 mg Sodium Chloride (Syrex Flush) 5 ml FLUSH Q8HR PRN PRN Reason: Keep Vein Open Vancomycin HCl (Pharmacy To Dose - Vancomycin) 0 dose .XX ASDIRECTED [facility] Discontinued Medications Acetaminophen (Tylenol) 650 mg PO Q4H PRN PRN Reason: Pain Last Admin: 07/13/16 03:13 Dose: 650 mg Atropine Sulfate (Atropine 0.1 Mg/Ml) 0 mg IVPUSH ASDIRECTED PRN PRN Reason: Heart Ceftriaxone Sodium (Rocephin) 1 gm IVPUSH Q24H [facility] Last Admin: 07/14/16 11:09 Dose: 1 gm Enoxaparin Sodium (Lovenox) 60 mg SUBCUT BID [facility] Last Admin: 07/12/16 08:28 Dose: 60 mg Enoxaparin Sodium (Lovenox) 60 mg SUBCUT BID [facility] Last Admin: 07/14/16 08:51 Dose: 60 mg Epinephrine HCl (Epinephrine 1:10,000) 1 mg IVPUSH ASDIRECTED PRN PRN Reason: Heart Furosemide (Lasix) 20 mg PO DAILY [facility] Last Admin: 07/11/16 08:28 Dose: 20 mg Sodium Chloride (Normal Saline) 1,000 mls @ 65 mls/hr IV ASDIRECTED [facility] Last Admin: 07/15/16 04:59 Dose: 65 mls/hr Piperacillin/Tazobactam/Dextrose (Zosyn In Dextrose Iso-Osmotic 3.375 Gm) 50 mls @ 100 mls/hr IV Q6HR [facility] Last Admin: 07/16/16 04:50 Dose: 100 mls/hr Vancomycin HCl 1.25 gm/ Sodium (Chloride) 275 mls @ 183 mls/hr IV ONETIME ONE Stop: 07/14/16 13:30 Last Admin: 07/14/16 12:44 Dose: 183 mls/hr Sodium Chloride (Normal Saline) 1,000 mls @ 25 mls/hr IV ASDIRECTED [facility] Last Admin: 07/16/16 09:54 Dose: 25 mls/hr Iopamidol (Isovue-370 (76%)) 75 ml IVPUSH ONETIME ONE Stop: 07/11/16 11:06 Last Admin: 07/11/16 13:35 Dose: 75 ml Lidocaine HCl (Xylocaine 2%) 0 mg IVPUSH ASDIRECTED PRN PRN Reason: Heart Lorazepam (Ativan) 0.25 mg PO BID PRN PRN Reason: Anxiety Last Admin: 07/11/16 17:44 Dose: 0.25 mg Polysaccharide Iron Complex (Ferrex 150) 150 mg PO DAILY [facility] Potassium Chloride (Klor-Con 10) 10 meq PO DAILY [facility] Last Admin: 07/16/16 09:30 Dose: 10 meq Sodium Chloride (Normal Saline) 100 ml FLUSH ASDIRECTED [facility] Stop: 07/11/16 13:00 Last Admin: 07/11/16 13:36 Dose: 100 ml - Exam Quality Assessment: DVT prophylaxis (lovenox). No: supplemental oxygen General: alert, oriented, cooperative, no acute distress Lungs: Clear to auscultation, Normal respiratory effort Cardiovascular: Regular Rate, Regular Rhythm Abdomen: bowel sounds present, soft, no tenderness, no distension Skin: warm, dry, intact, other (left inner thigh-no erythema or open wound, pink in color-tender) Psy/Mental Status: alert, normal affect, normal mood - Problem List Review Problem List Initiated/Reviewed/Updated: Yes - My Orders Last 24 Hours: My Active Orders 07/15/16 11:01 Vital Signs [RC] 0700,1500,2300 07/15/16 12:01 Height and Weight [RC] 0700 07/15/16 14:18 Consult to [employer]ing Machine Operator [CONS] Routine 07/16/16 10:55 CDIFF TOX A+B [OP] Routine 07/16/16 10:56 Loperamide [Imodium] 2 mg PO ASDIRECTED PRN 07/16/16 11:00 B.Bif/B.Long/L.Acidoph/L.Rhamn [Multi-Cecille Plus] 1 cap PO DAILY 07/16/16 18:00 Potassium Chloride [Klor-Con 10] 10 meq PO BIDMEALS - Plan Plan:: PRIMARY ASSESSMENT/PLAN: Bacteremia, exact etiology unknown-possible left upper leg cellulitis, improving. Cannot rule out early endocarditis with initial presentation of chest pain. Blood cultures positive for staphylococcus aureus. Continue IV vancomycin. Discontinue zosyn. Discontinue IVFs. CBC in AM. Acute diarrhea. Stool for Cdiff ordered. Will start on probiotics daily. May use imodium PRN for loose stools. Most likely antibiotic related. Hypokalemia, most likely diarrhea induced. K 3.2. Replace with oral potassium 10 mEq BID. Repeat BMP in AM. Anemia, hyperchromic macrocytic without anisocytosis and/or early form of iron deficiency anemia. TSH 2.3. AST and ALT normal. ALK phos elevated at 158-could be cause of macrocytic anemia. WBC and platelets have been normal. Will continue to monitor this. Continue oral iron therapy as total iron low, but reticulocyte count normal. Rule out PE. This was ruled out with chest CT. Mild NSTEMI, type 2. Troponin normal and EKG revealed no ST segment elevation. No chest pain now. Continue aspirin and toprol XL. She will need ECHO as soon as available to rule out endocarditis. SECONDARY ASSESSMENT/PLAN: Anxiety, stable. Continue current medication regimen. Congestive heart failure (HFpEF). ECHO (October 2015) ejection fraction 55%, normal systolic function, normal left ventricle size, apical anterior, apical septal, apical inferior, apical lateral and apex segments were hypokinetic. Recent BNP of 613. Not on oral diuretic. Discuss low-dose LIDA inhibitor on follow-up. Coronary artery disease. Had been on Brillinta for 2 years due to stent placement. Left heart cath on 11/08/15 demonstrated right dominant coronary anatomy with mild proximal and mid-right coronary artery disease. LAD stents were patent. There was mild mid-LAD disease. On aspirin. Hyperlipidemia. On lipitor. GERD. Continue omeprazole. Restless leg syndrome. Continue requip and baclofen. DVT prophylaxis. On lovenox. Overall plan: Continue IV vancomycin. Determine etiology of diarrhea. Replace potassium. Repeat labs in AM. Patient will most likely be able to be transferred to swing bed status tomorrow. Patient in agreement with this plan. The plan of care was reviewed with Dr. Kenney. He is in agreement with the plan of care.
[2016-07-16] MEDS: Iron Polysaccharides Complex 150 MG Cap PO SCH (12:24)
[2016-07-16] MEDS: B.Bifidum/B.Longum/L.Acidophilus/L.Rhamnosus (Probiotic) Cap PO SCH (12:24)
[2016-07-17] MEDS ORDERED: Trolamine Salicylate/Aloe Vera 10% Crm 85 GM Tube TOP PRN (00:35)
[2016-07-17] MEDS: Omeprazole 20 MG Cap.CR PO SCH (06:33)
[2016-07-17] MEDS: Aspirin 81 MG Tab.EC PO SCH (09:48)
[2016-07-17] MEDS: busPIRone 5 MG Tab PO SCH (09:48)
[2016-07-17] MEDS: Calcium Citrate/Vitamin D3 315 MG-250 Unit Tab PO SCH (09:48)
[2016-07-17] MEDS: Cholecalciferol (Vitamin D3) 1,000 Unit Tab PO SCH (09:48)
[2016-07-17] MEDS: rOPINIRole 0.25 MG Tab PO SCH (09:49)
[2016-07-17] MEDS: Docusate Sodium 100 MG Cap PO SCH (09:49)
[2016-07-17] MEDS: Acetaminophen 650 MG Tab.ER PO SCH (09:50)
[2016-07-17] MEDS: Potassium Chloride 10 MEQ Tab.ER PO SCH (09:51)
[2016-07-17] MEDS: DULoxetine 30 MG Cap PO SCH (09:51)
[2016-07-17] MEDS: Misoprostol 100 MCG Tab PO SCH (09:52)
[2016-07-17] MEDS: Enoxaparin 40 MG/0.4 ML Syringe SUBCUT SCH (09:52)
[2016-07-17] MEDS: LORazepam 0.5 MG Tab PO SCH (09:54)
[2016-07-17] MEDS: B.Bifidum/B.Longum/L.Acidophilus/L.Rhamnosus (Probiotic) Cap PO SCH (09:55)
[2016-07-17] MEDS: Metoprolol Succinate 50 MG Tab.ER PO SCH (09:55)
[2016-07-17 09:56] VITALS: BP 119/70
[2016-07-17] MEDS: Diclofenac Sodium 50 MG Tab.EC PO SCH (09:57)
--- NOTE | 2016-07-17 10:39 | PCM.DCSUM1 ---
Discharge Summary - Hospital Course Brief History: This patient was initially admitted through the emergency department after she called the ambulance due to leg pain however upon MOr writing at her home she had chest pain. She had slight troponin level elevation. She was initially admitted in telemetry for rule out myocardial infarction however it was determined that she spiked fevers requiring IV antibiotics and further workup for infection of unknown etiology. - Discharge Data Discharge Date: 07/17/16 Discharge Disposition: Home, Self-Care 01 Condition: Good - Patient Summary/Data Complications: Patient did have bacteremia anaerobic and aerobic on blood cultures questionable etiology possible cellulitis left inner thigh calf. She seemed to respond to IV antibiotics however she did quite high vancomycin trough with an acute rise in creatinine level questionable etiology possible nephrotoxic agent of vancomycin and/or NSAIDs insult. Consults: Consultations 07/12/16 16:30 PT Evaluation and Treatment [CONS] Routine 07/15/16 14:18 Consult to Events Manager [CONS] Routine Hospital Course: Patient developed periodic transient fevers early on in admission in the night. Questionable etiology however she did have positive blood cultures both anaerobic and aerobic. She was treated with IV antibiotics broad spectrum and eventually vancomycin due to possibility of MRSA--sensitivity record reports from the cultures were still pending on the day placed in swing bed. She did have a small type II non-STEMI myocardial infarction that was treated conservatively. She does have an extensive myocardial history. She was placed on telemetry, no ectopy throughout her hospital stay. She did develop redness left inner 5 possibility of cellulitis likely the cause of her bacteremia however could be endocarditis. She did have low potassium and this was corrected gently. She did develop some diarrhea stools were negative for C. difficile. Started on probiotics. She did rule out for pulmonary embolism. Patient does have a history of CVA in the past and has been more difficult for her to perform activities of daily living. It was determined that she would be placed in swing bed for rehabilitation. - Discharge Plan Home Medications: Home Meds Alendronate [Fosamax] 70 mg PO TH 09/20/14 [History] Cholecalciferol (Vitamin D3) [Vitamin D3] 2,000 unit PO DAILY 09/20/14 [History] DULoxetine [Cymbalta] 30 mg PO BID 09/20/14 [History] Docusate Sodium [Colace] 200 mg PO DAILY 09/20/14 [History] atorvaSTATin [Lipitor] 60 mg PO DAILY 09/20/14 [History] LORazepam [Ativan] 0.25 mg PO BID PRN #0 tablet 10/05/14 [Rx] Calcium Carbonate/Vitamin D3 [Calcium 600-Vit D3 800 Tablet] 1 each PO DAILY [History] Aspirin [Halfprin] 81 mg PO BRK 11/07/15 [History] Metoprolol Succinate [Toprol XL 50mg] 75 tab PO DAILY 11/07/15 [History] Misoprostol 200 mcg PO BID 11/07/15 [History] busPIRone [Buspar] 5 mg PO BID 11/07/15 [History] rOPINIRole HCl [Requip] 0.25 mg PO BID 11/07/15 [History] Baclofen [Lioresal] 10 mg PO BEDTIME PRN 02/29/16 [History] Diclofenac Sodium [Voltaren] 50 mg PO BID 02/29/16 [History] Loratadine/Pseudoephedrine [Loratadine-Pseudoephed 10-240] 1 tab PO BEDTIME PRN 02/29/16 [History] Nitroglycerin [Nitrostat] 0.4 mg SL ASDIRECTED PRN 02/29/16 [History] Omeprazole 40 mg PO ACBREAKFAST 02/29/16 [History] oxyCODONE HCl/Acetaminophen [oxyCODONE-Acetaminophen 5-325] 1 tab PO DAILY 02/28 [History] - Discharge Summary/Plan Comment DC Time >30 min.: Yes (94 minutes spent on this discharge) Discharge Summary/Plan Comment: Patient will be placed in swing bed therapy for further surveillance, blood culture surveillance physical therapy and antibiotics FINAL DIAGNOSIS Weakness, deconditioning Bacteremia Rule out endocarditis Anemia Mild non-STEMI type II Cellulitis - General Info Date of Service: 07/17/16 (See H&P) - Patient Data Vitals - Most Recent: Last Vital Signs Temp 98.4 F 07/17/16 06:28 Pulse 91 07/17/16 09:55 Resp 18 07/17/16 06:28 BP 119/70 07/17/16 09:55 Pulse Ox 96 07/17/16 06:28 Weight - Most Recent: 151 lb 6.4 oz I&O - Last 24 hours: Intake & Output 07/16/16 07/17/16 07/17/16 22:59 06:59 14:59 Intake Total 680 200 Balance 680 200 Lab Results - Last 24 hrs: Laboratory Results - last 24 hr 07/17/16 07/17/16 07/17/16 Range/Units 07:35 07:35 07:35 WBC 12.2 H (5.0-10.0) 10^3/uL RBC 2.91 L (3.80-5.50) 10^6/uL Hgb 9.5 L (12.0-16.0) g/dL Hct 27.4 L (37.0-47.0) % MCV 94.4 H (82.0-92.0) fL MCH 32.6 H (27.0-31.0) pg MCHC 34.6 (32.0-36.0) g/dL RDW 13.6 (11.5-14.5) % Plt Count 263 (150-300) 10^3/uL MPV 7.5 (7.4-10.4) fL Neut % (Auto) 83.5 H (50.0-70.0) % Lymph % (Auto) 10.6 L (20.0-40.0) % Emery % (Auto) 3.2 (2.0-8.0) % Eos % (Auto) 1.9 (1.0-3.0) % Baso % (Auto) 0.8 (0.0-1.0) % Neut # (Auto) 10.2 H (2.5-7.0) 10^3/uL Lymph # (Auto) 1.3 (1.0-4.0) 10^3/uL Emery # (Auto) 0.4 (0.1-0.8) 10^3/uL Eos # (Auto) 0.2 (0.1-0.3) 10^3/uL Baso # (Auto) 0.1 (0.0-0.1) 10^3/uL Sodium 142 (136-145) mmol/L Potassium 3.7 (3.3-5.3) mmol/L Chloride 108 (98-115) mmol/L Carbon Dioxide 22.2 (21.0-32.0) mmol/L BUN 12 (6-25) mg/dL Creatinine 1.82 H (0.51-1.17) mg/dL Est Cr Clr Drug Dosing 22.43 mL/min Estimated GFR (MDRD) 27 mL/min Glucose 107 (70-110) mg/dL Calcium 8.3 L (8.7-10.3) mg/dL Vancomycin Trough 31.6 H* (10-20) ug/mL JUSTIN Results - Last 24 hrs: Microbiology 07/16/16 08:04 Aerobic Blood Culture - Preliminary Blood - Venous - Lab Draw NO GROWTH AFTER 1 DAY Anaerobic Blood Culture - Preliminary NO GROWTH AFTER 1 DAY 07/16/16 07:30 Aerobic Blood Culture - Preliminary Blood - Venous NO GROWTH AFTER 1 DAY Anaerobic Blood Culture - Preliminary NO GROWTH AFTER 1 DAY 07/16/16 12:20 Clostridium difficile Toxin A&B (M) - Final Stool / Feces - Stool, Liquid NEGATIVE CDIFF TOXIN Med Orders - Current: Current Medications Acetaminophen (Tylenol Arthritis Pain) 650 mg PO TID [facility] Last Admin: 07/17/16 09:50 Dose: 650 mg Alendronate Sodium (Fosamax) 70 mg PO Th@0600 [facility] Last Admin: 07/13/16 05:58 Dose: 70 mg Aspirin (Halfprin) 81 mg PO BRK [facility] Last Admin: 07/17/16 09:48 Dose: 81 mg Baclofen (Lioresal) 10 mg PO BEDTIME PRN PRN Reason: Muscle Spasm Last Admin: 07/10/16 22:00 Dose: 10 mg Buspirone HCl (Buspar) 5 mg PO BID [facility] Last Admin: 07/17/16 09:48 Dose: 5 mg Calcium Citrate (Calcium Citrate + D) 1 tab PO DAILY [facility] Last Admin: 07/17/16 09:48 Dose: 1 tab Cholecalciferol (Vitamin D3) 2,000 units PO DAILY [facility] Last Admin: 07/17/16 09:48 Dose: 2,000 units Ketoprofen 12 gm/ Menthol 1.8 gm/ Trolamine Salicylate 46.2 gm 0 gm TOP TID PRN PRN Reason: pain Diclofenac Sodium (Voltaren) 50 mg PO BID [facility] Last Admin: 07/17/16 09:57 Dose: Not Given Docusate Sodium (Colace) 200 mg PO DAILY [facility] Last Admin: 07/17/16 09:49 Dose: 200 mg Duloxetine HCl (Cymbalta) 30 mg PO BID [facility] Last Admin: 07/17/16 09:51 Dose: Not Given Enoxaparin Sodium (Lovenox) 40 mg SUBCUT Q24H [facility] Last Admin: 07/17/16 09:52 Dose: Not Given Vancomycin HCl 1 gm/ Sodium (Chloride) 250 mls @ 167 mls/hr IV Q24H [facility] Lactobacillus Acidophilus/Rhamnosus (Multi-Cecille Plus) 1 cap PO DAILY [facility] Last Admin: 07/17/16 09:55 Dose: Not Given Loperamide HCl (Imodium) 2 mg PO ASDIRECTED PRN PRN Reason: Diarrhea Last Admin: 07/16/16 12:24 Dose: 2 mg Loratadine (Claritin) 10 mg PO BEDTIME PRN PRN Reason: Allergies Lorazepam (Ativan) 0.25 mg PO BID [facility] Last Admin: 07/17/16 09:54 Dose: 0.25 mg Metoprolol Succinate (Toprol Xl) 75 mg PO DAILY [facility] Last Admin: 07/17/16 09:55 Dose: 75 mg Misoprostol (Cytotec) 200 mcg PO BID [facility] Last Admin: 07/17/16 09:52 Dose: Not Given Nitroglycerin (Nitrostat) 0.4 mg SL ASDIRECTED PRN PRN Reason: Chest Pain Omeprazole (Omeprazole) 40 mg PO ACBREAKFAST [facility] Last Admin: 07/17/16 06:33 Dose: 40 mg Ondansetron HCl (Zofran) 4 mg IVPUSH Q4H PRN PRN Reason: Nausea/Vomiting Last Admin: 07/12/16 17:36 Dose: 4 mg Polysaccharide Iron Complex (Ferrex 150) 150 mg PO DAILY@1200 [facility] Last Admin: 07/16/16 12:24 Dose: 150 mg Potassium Chloride (Klor-Con 10) 10 meq PO BIDMEALS [facility] Last Admin: 07/17/16 09:51 Dose: Not Given Ropinirole HCl (Requip) 0.25 mg PO BID [facility] Last Admin: 07/17/16 09:49 Dose: 0.25 mg Sodium Chloride (Syrex Flush) 5 ml FLUSH Q8HR PRN PRN Reason: Keep Vein Open Trolamine Salicylate (Aspercreme 10%) 0 gm TOP Q1H PRN PRN Reason: pain Last Admin: 07/17/16 01:18 Dose: 1 applic Vancomycin HCl (Pharmacy To Dose - Vancomycin) 0 dose .XX ASDIRECTED [facility] Discontinued Medications Acetaminophen (Tylenol) 650 mg PO Q4H PRN PRN Reason: Pain Last Admin: 07/13/16 03:13 Dose: 650 mg Atropine Sulfate (Atropine 0.1 Mg/Ml) 0 mg IVPUSH ASDIRECTED PRN PRN Reason: Heart Ceftriaxone Sodium (Rocephin) 1 gm IVPUSH Q24H [facility] Last Admin: 07/14/16 11:09 Dose: 1 gm Enoxaparin Sodium (Lovenox) 60 mg SUBCUT BID [facility] Last Admin: 07/12/16 08:28 Dose: 60 mg Enoxaparin Sodium (Lovenox) 60 mg SUBCUT BID [facility] Last Admin: 07/14/16 08:51 Dose: 60 mg Epinephrine HCl (Epinephrine 1:10,000) 1 mg IVPUSH ASDIRECTED PRN PRN Reason: Heart Furosemide (Lasix) 20 mg PO DAILY [facility] Last Admin: 07/11/16 08:28 Dose: 20 mg Sodium Chloride (Normal Saline) 1,000 mls @ 65 [facility] Last Admin: 07/15/16 04:59 Dose: 65 mls/hr Piperacillin/Tazobactam/Dextrose (Zosyn In Dextrose Iso-Osmotic 3.375 Gm) 50 mls @ 100 mls/hr IV Q6HR [facility] Last Admin: 07/16/16 04:50 Dose: 100 mls/hr Vancomycin HCl 1.25 gm/ Sodium (Chloride) 275 mls @ 183 mls/hr IV ONETIME ONE Stop: 07/14/16 13:30 Last Admin: 07/14/16 12:44 Dose: 183 mls/hr Vancomycin HCl 1 gm/ Sodium (Chloride) 270 mls @ 180 mls/hr IV Q12H [facility] Last Admin: 07/17/16 10:07 Dose: Not Given Sodium Chloride (Normal Saline) 1,000 mls @ 25 mls/hr IV ASDIRECTED [facility] Last Admin: 07/16/16 09:54 Dose: 25 mls/hr Iopamidol (Isovue-370 (76%)) 75 ml IVPUSH ONETIME ONE Stop: 07/11/16 11:06 Last Admin: 07/11/16 13:35 Dose: 75 ml Lidocaine HCl (Xylocaine 2%) 0 mg IVPUSH ASDIRECTED PRN PRN Reason: Heart Lorazepam (Ativan) 0.25 mg PO BID PRN PRN Reason: Anxiety Last Admin: 07/11/16 17:44 Dose: 0.25 mg Polysaccharide Iron Complex (Ferrex 150) 150 mg PO DAILY [facility] Potassium Chloride (Klor-Con 10) 10 meq PO DAILY [facility] Last Admin: 07/16/16 09:30 Dose: 10 meq Sodium Chloride (Normal Saline) 100 ml FLUSH ASDIRECTED [facility] Stop: 07/11/16 13:00 Last Admin: 07/11/16 13:36 Dose: 100 ml *Q Meaningful Use (DIS) - VTE *Q VTE Criteria *Q: - Stroke *Q Stroke Criteria *Q: - AMI *Q AMI Criteria *Q:
== END 2016-07-17 10:30 | disposition swing bed (61) | DRG 947 ==
LOC: KA.ED 18:43 → KA.MS 20:01 → OBSVTOIN 07-11 10:07
PROVIDERS: ADMIT Physician Assistant Surgical; ATTEND Family Medicine
DX: R07.89 Other chest pain (principal); I50.9 Heart failure, unspecified; R01.1 Cardiac murmur, unspecified; E78.00 Pure hypercholesterolemia, unspecified; I10 Essential (primary) hypertension; I25.2 Old myocardial infarction; R53.1 Weakness; F41.8 Other specified anxiety disorders; I21.4 Non-ST elevation (NSTEMI) myocardial infarction; I38 Endocarditis, valve unspecified; R78.81 Bacteremia; Z86.73 Personal history of transient ischemic attack (TIA), and cerebral infarction without residual deficits; L03.116 Cellulitis of left lower limb; I50.30 Unspecified diastolic (congestive) heart failure; B95.61 Methicillin susceptible Staphylococcus aureus infection as the cause of diseases classified elsewhere; D64.9 Anemia, unspecified; I69.398 Other sequelae of cerebral infarction; R26.2 Difficulty in walking, not elsewhere classified; I25.10 Atherosclerotic heart disease of native coronary artery without angina pectoris; G25.81 Restless legs syndrome; K21.9 Gastro-esophageal reflux disease without esophagitis; F41.9 Anxiety disorder, unspecified; E78.5 Hyperlipidemia, unspecified; Z91.040 Latex allergy status; Z88.2 Allergy status to sulfonamides; Z79.899 Other long term (current) drug therapy; Z95.5 Presence of coronary angioplasty implant and graft
CPT/HCPCS: 36415 ×2; 71010; 71260; 80053; 82553; 83690; 83880; 84484 ×2; 85025; 85379; 85610; 85730; 93005; 99285 ×2; A9270 ×10; 80048; 80076; 80202; 81001; 82607; 82728; 82746; 83540; 83605; 84443; 84466; 85045; 85651; 87040; 87070; 87077; 87186; 87324; 93971; 97110-GP; 97162-GP; G0378; J0696; J1650; J2405; J2543; J3370; J7030; J7050; Q9967

== ENCOUNTER 2016-07-17 09:38 | Inpatient (IN) | payer MEDICARE, BC ==
[2016-07-17] MEDS ORDERED: Trolamine Salicylate/Aloe Vera 10% Crm 85 GM Tube TOP PRN (10:29)
[2016-07-17] MEDS ORDERED: Baclofen 10 MG Tab PO PRN (10:29)
[2016-07-17] MEDS ORDERED: Ondansetron 4 MG/2 ML SDV IVPUSH PRN (10:29)
[2016-07-17] MEDS ORDERED: Loratadine 10 MG Tab PO PRN (10:29)
[2016-07-17] MEDS ORDERED: Sodium Chloride 0.9% 5 ML Syringe FLUSH PRN (10:29)
[2016-07-17] MEDS ORDERED: Loperamide 2 MG Cap PO PRN (10:29)
[2016-07-17] MEDS ORDERED: Ketoprofen 12 GM, Menthol 1.8 GM, Trolamine Salicylate/Aloe Vera 46.2 GM TOP PRN ×3 (10:29)
[2016-07-17] MEDS ORDERED: Nitroglycerin 0.4 MG Tab.SL SL PRN (10:29)
--- NOTE | 2016-07-17 10:52 | PCM.HP ---
H&P History of Present Illness - General Date of Service: 07/17/16 Admit Problem/Dx: Admission Diagnosis/Problem Admission Diagnosis/Problem Chest pain Source of Information: Patient, Old records, RN History Limitations: Reports: No limitations - History of Present Illness Initial Comments - Free Text/Narative: 76 year-old female patient was initially admitted into acute care and switch to swing bed today. Patient initially came into the ED complaining of left leg pain however upon arrival to her house she started complaining of chest pain and shortness of breath. She has an extensive cardiovascular history with history of NE in with history of CVA which she uses a walker. He was admitted to acute care on telemetry and it was noted that she had a small type II non- STEMI myocardial infarction--treated demand ischemic protocol with maximum conservative medical therapy. her initial EKG showed sinus rhythm with deep Q waves in inferior leads likely old infarct. Chest x-ray was no acute findings. It was determined that she did have an aerobic and anaerobic blood culture staph undetermined if MRSA however she was started on broad-spectrum antibiotics along with vancomycin. She did have elevated vancomycin trough, pharmacy was consulted, holding doses due to acute renal injury. Nonsteroidals and all nephrotoxins placed on hold day of swing bed admission. The source of her bacteremia is unknown etiology possible cellulitis upper inner thigh. Patient does admit to having lots of ants in her home including ant bites however these were on her right arm--however no cellulitis was detected on upon admission to her right arm. - Related Data Allergies/Adverse Reactions: Allergies Allergy/AdvReac Type Severity Reaction Status Date / Time Latex, Natural Rubber Allergy Rash Verified 07/17/16 14:56 Sulfa (Sulfonamide Allergy Airway Verified 07/17/16 14:56 Antibiotics) Tightness Home Medications: Home Meds Alendronate [Fosamax] 70 mg PO TH 09/20/14 [History] Cholecalciferol (Vitamin D3) [Vitamin D3] 2,000 unit PO DAILY 09/20/14 [History] DULoxetine [Cymbalta] 30 mg PO BID 09/20/14 [History] Docusate Sodium [Colace] 200 mg PO DAILY 09/20/14 [History] atorvaSTATin [Lipitor] 60 mg PO DAILY 09/20/14 [History] LORazepam [Ativan] 0.25 mg PO BID PRN #0 tablet 10/05/14 [Rx] Calcium Carbonate/Vitamin D3 [Calcium 600-Vit D3 800 Tablet] 1 each PO DAILY [History] Aspirin [Halfprin] 81 mg PO BRK 11/07/15 [History] Metoprolol Succinate [Toprol XL 50mg] 75 tab PO DAILY 11/07/15 [History] Misoprostol 200 mcg PO BID 11/07/15 [History] busPIRone [Buspar] 5 mg PO BID 11/07/15 [History] rOPINIRole HCl [Requip] 0.25 mg PO BID 11/07/15 [History] Baclofen [Lioresal] 10 mg PO BEDTIME PRN 02/29/16 [History] Diclofenac Sodium [Voltaren] 50 mg PO BID 02/29/16 [History] Loratadine/Pseudoephedrine [Loratadine-Pseudoephed 10-240] 1 tab PO BEDTIME PRN 02/29/16 [History] Nitroglycerin [Nitrostat] 0.4 mg SL ASDIRECTED PRN 02/29/16 [History] Omeprazole 40 mg PO ACBREAKFAST 02/29/16 [History] Past Medical History HEENT History: Reports: Cataract, Impaired vision, Other (see below) Other HEENT History: 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 Endocrine/Metabolic History: Reports: Osteoporosis Dermatologic History: Reports: None - Infectious Disease History Infectious Disease History: Reports: Chicken pox, Measles, Mumps, Shingles - Past Surgical History Head Surgeries/Procedures: Reports: None HEENT Surgical History: Reports: Cataract surgery Cardiovascular Surgical History: Reports: Coronary artery stent Respiratory Surgical History: Reports: None GI Surgical History: Reports: Appendectomy, Colonoscopy, EGD Female Surgical History: Reports: Hysterectomy, Salpingo-oophorectomy, Other (see below) Other Female Surgeries/Procedures: bladder repair Neurological Surgical History: Reports: None Musculoskeletal Surgical History: Reports: Arthroscopic procedure, Knee replacement Dermatological Surgical History: Reports: None Social & Family History - Family History Family Medical History: Unobtainable HEENT: Reports: None Cardiac: Reports: Hypertension Respiratory: Reports: None GI: Reports: None : Reports: None OBGYN: Reports: None Musculoskeletal: Reports: Osteoporosis Neurological: Reports: None Psychiatric: Reports: None Endocrine/Metabolic: Reports: None Hematologic: Reports: None Immunologic: Reports: None Dermatologic: Reports: None Oncologic: Reports: Breast - Tobacco Use Smoking Status *Q: Never Smoker Second Hand Smoke Exposure: Yes - Caffeine Use Caffeine Use: Reports: Coffee, Soda, Tea - Alcohol Use Days Per Week of Alcohol Use: 1 Number of Drinks Per Day: 1 Total Drinks Per Week: 1 - Recreational Drug Use Recreational Drug Use: No - Living Situation & Occupation Living situation: Reports: , alone H&P Review of Systems - Review of Systems: Review Of Systems: See Below General: Reports: weakness HEENT: Reports: no symptoms Pulmonary: Reports: No Symptoms Cardiovascular: Reports: no symptoms Gastrointestinal: Reports: No symptoms Genitourinary: Reports: no symptoms Musculoskeletal: Reports: leg pain (Left leg calf--muscle aches), muscle pain. Denies: joint swelling Skin: Reports: bruising (inner thighs bilateral bruising--present on admission, receding erythema he left inner thigh), change in color Psychiatric: Reports: no symptoms Neurological: Reports: Pre-Existing Deficit, Difficulty Walking, Weakness, Gait Disturbance. Denies: Paresthesia Hematologic/Lymphatic: Reports: easy bruising Immunologic: Reports: no symptoms Exam - Exam Exam: See Below - Vital Signs Weight: 151 lb 6.4 oz - Exam Quality Assessment: No: supplemental oxygen General: alert, oriented, 4 HEENT: Mucosa moist & pink Neck: supple, trachea midline, 2 Lungs: Clear to auscultation, Normal respiratory effort Cardiovascular: regular rate, regular rhythm Abdomen: Normal Bowel Sounds, Soft (Female) Exam: Deferred Back Exam: No: CVA tenderness (L), CVA tenderness (R), muscle spasm Extremities: increased warmth (slight left inner thigh. ). No: edema Skin: dry, intact, ecchymosis (inner thighs bilateral bruising--present on admission, receding erythema he left inner thigh). No: wound, incision Neurological: No: normal speech (Dysarthric speech--likely cerebellar--pre- existing history of CVA) Neuro Extensive - Mental Status: alert, oriented x3, normal mood/affect, normal cognition Neuro Extensive - Motor, Sensory, Reflexes: hemiplagia (R). No: normal gait, receptive aphasia, expressive aphasia Psychiatric: alert, normal affect, normal mood - Patient Data Result Diagrams: 07/18/16 07:35 07/18/16 07:35 *Q Meaningful Use (ADM) - VTE *Q VTE Criteria *Q: - Stroke *Q Stroke Criteria *Q: - AMI *Q AMI Criteria *Q: Problem List Initiated/Reviewed/Updated: Yes Orders Last 24hrs: Active Orders 24 hr Category Date Time Status Patient Status [ADT] Routine ADT 07/17/16 10:29 Ordered Height and Weight [RC] DAILY Care 07/17/16 10:29 Active Incentive Spirometry [RT Incentive Spirometry] [RC] Care 07/17/16 10:29 Active ASDIRECTED Intake and Output [RC] QSHIFT Care 07/17/16 10:29 Active Oxygen Therapy [RC] PRN Care 07/17/16 10:29 Active Oxygen Therapy [RC] PRN Care 07/17/16 10:29 Active Up to Chair [RC] ASDIRECTED Care 07/17/16 10:29 Active Vital Signs [RC] Q8H Care 07/17/16 10:29 Active Consult to Bottling Attendant [CONS] Routine Cons 07/17/16 10:29 Active PT Evaluation and Treatment [CONS] Routine Cons 07/17/16 10:29 Active 2 Gram Sodium Diet [DIET] Diet 07/17/16 Breakfast Active VANCOMYCIN-RANDOM [REF] Routine Lab 07/18/16 07:30 Ordered Acetaminophen [Tylenol Arthritis Pain] Med 07/17/16 14:00 Active 650 mg PO TID Alendronate [Fosamax] Med 07/20/16 06:00 Ordered 70 mg PO Th@0600 Aspirin [Halfprin] Med 07/17/16 10:29 Ordered 81 mg PO BRK B.Bif/B.Long/L.Acidoph/L.Rhamn [Multi-Cecille Plus] Med 07/18/16 09:00 Ordered 1 cap PO DAILY Baclofen [Lioresal] Med 07/17/16 10:29 Ordered 10 mg PO BEDTIME PRN Calcium Citrate/Vitamin D3 [Calcium Citrate + D] Med 07/18/16 09:00 Ordered 1 tab PO DAILY Cholecalciferol (Vitamin D3) [Vitamin D3] Med 07/18/16 09:00 Ordered 2,000 units PO DAILY DULoxetine [Cymbalta] Med 07/17/16 21:00 Ordered 30 mg PO BID Docusate Sodium [Colace] Med 07/18/16 09:00 Ordered 200 mg PO DAILY Enoxaparin [Lovenox] Med 07/18/16 09:00 Ordered 40 mg SUBCUT Q24H Iron Polysaccharides Complex [Ferrex 150] Med 07/17/16 12:00 Ordered 150 mg PO DAILY@1200 Ketoprofen 12 gm Med 07/17/16 10:29 Ordered Menthol 1.8 gm Trolamine Salicylate/Aloe Vera [Aspercreme 10%] 46.2 gm rup rub to left leg tid prn for pain TOP TID LORazepam [Ativan] Med 07/17/16 21:00 Ordered 0.25 mg PO BID Loperamide [Imodium] Med 07/17/16 10:29 Ordered 2 mg PO ASDIRECTED PRN Loratadine [Claritin] Med 07/17/16 10:29 Ordered 10 mg PO BEDTIME PRN Metoprolol Succinate [Toprol XL] Med 07/18/16 09:00 Ordered 75 mg PO DAILY Nitroglycerin [Nitrostat] Med 07/17/16 10:29 Ordered 0.4 mg SL ASDIRECTED PRN Omeprazole Med 07/18/16 07:00 Ordered 40 mg PO ACBREAKFAST Ondansetron [Zofran] Med 07/17/16 10:29 Ordered 4 mg IVPUSH Q4H PRN Potassium Chloride [Klor-Con 10] Med 07/17/16 18:00 Ordered 10 meq PO BIDMEALS Sodium Chloride 0.9% [Syrex Flush] Med 07/17/16 10:29 Ordered 5 ml FLUSH Q8HR PRN Trolamine Salicylate/Aloe Vera [Aspercreme 10%] Med 07/17/16 10:29 Ordered 0 gm TOP Q1H PRN Vancomycin 1 gm Med 07/18/16 08:00 Ordered Sodium Chloride 0.9% [Normal Saline] 250 ml IV Q24H Vancomycin Pharmacy to Dose [Pharmacy to Dose - Med 07/17/16 10:29 Pending Vancomycin] 0 dose .XX ASDIRECTED busPIRone [Buspar] Med 07/17/16 21:00 Ordered 5 mg PO BID rOPINIRole [Requip] Med 07/17/16 21:00 Ordered 0.25 mg PO BID Blood Culture x2 Reflex Set [OM.PC] Stat Ot 07/17/16 10:29 Ordered Blood Culture x2 Reflex Set [OM.PC] Stat Ot 07/17/16 10:29 Ordered Blood Culture x2 Reflex Set [OM.PC] Stat Ot 07/17/16 10:29 Ordered Peripheral IV Insertion Adult [OM.PC] Stat Ot 07/17/16 10:29 Ordered Saline Lock Insert [OM.PC] Stat Ot 07/17/16 10:29 Ordered Medication Orders Acetaminophen (Tylenol Arthritis Pain) 650 mg PO TID [facility] Alendronate Sodium (Fosamax) 70 mg PO Th@0600 RICK Aspirin (Halfprin) 81 mg PO BRK RICK Baclofen (Lioresal) 10 mg PO BEDTIME PRN PRN Reason: Muscle Spasm Buspirone HCl (Buspar) 5 mg PO BID [facility] Calcium Citrate (Calcium Citrate + D) 1 tab PO DAILY [facility] Cholecalciferol (Vitamin D3) 2,000 units PO DAILY [facility] Ketoprofen 12 gm/ Menthol 1.8 gm/ Trolamine Salicylate 46.2 gm 0 gm TOP TID PRN PRN Reason: pain Docusate Sodium (Colace) 200 mg PO DAILY [facility] Duloxetine HCl (Cymbalta) 30 mg PO BID [facility] Enoxaparin Sodium (Lovenox) 40 mg SUBCUT Q24H [facility] Vancomycin HCl 1 gm/ Sodium (Chloride) 250 mls @ 167 mls/hr IV Q24H [facility] Lactobacillus Acidophilus/Rhamnosus (Multi-Cecille Plus) 1 cap PO DAILY [facility] Loperamide HCl (Imodium) 2 mg PO ASDIRECTED PRN PRN Reason: Diarrhea Loratadine (Claritin) 10 mg PO BEDTIME PRN PRN Reason: Allergies Lorazepam (Ativan) 0.25 mg PO BID [facility] Metoprolol Succinate (Toprol Xl) 75 mg PO DAILY [facility] Nitroglycerin (Nitrostat) 0.4 mg SL ASDIRECTED PRN PRN Reason: Chest Pain Omeprazole (Omeprazole) 40 mg PO ACBREAKFAST [facility] Ondansetron HCl (Zofran) 4 mg IVPUSH Q4H PRN PRN Reason: Nausea/Vomiting Polysaccharide Iron Complex (Ferrex 150) 150 mg PO DAILY@1200 [facility] Potassium Chloride (Klor-Con 10) 10 meq PO BIDMEALS [facility] Ropinirole HCl (Requip) 0.25 mg PO BID [facility] Sodium Chloride (Syrex Flush) 5 ml FLUSH Q8HR PRN PRN Reason: Keep Vein Open Trolamine Salicylate (Aspercreme 10%) 0 gm TOP Q1H PRN PRN Reason: pain Vancomycin HCl (Pharmacy To Dose - Vancomycin) 0 dose .XX ASDIRECTED [facility] Assessment/Plan Comment:: HISTORY OF PRESENT ILLNESS 76 year-old female patient was initially admitted into acute care and switch to swing bed today. Patient initially came into the ED complaining of left leg pain however upon arrival to her house she started complaining of chest pain and shortness of breath. She has an extensive cardiovascular history with history of NE in with history of CVA which she uses a walker. He was admitted to acute care on telemetry and it was noted that she had a small type II non- STEMI myocardial infarction--treated demand ischemic protocol with maximum conservative medical therapy. her initial EKG showed sinus rhythm with deep Q waves in inferior leads likely old infarct. Chest x-ray was no acute findings. It was determined that she did have an aerobic and anaerobic blood culture staph undetermined if MRSA however she was started on broad-spectrum antibiotics along with vancomycin. She did have elevated vancomycin trough, pharmacy was consulted, holding doses due to acute renal injury. Nonsteroidals and all nephrotoxins placed on hold day of swing bed admission. The source of her bacteremia is unknown etiology possible cellulitis upper inner thigh. Patient does admit to having lots of ants in her home including ant bites however these were on her right arm--however no cellulitis was detected on upon admission to her right arm. Cardiac history includes Patient has a significant past medical history of PCI with LAD stents placed in 2012 and 09/2014. October 2015--while hospitalized in [place] she underwent chest CT angiogram and was negative for PE. Her echo showed EF 55 %. Normal systolic function of the left ventricle. The apical anterior, apical septal, apical inferior, apical lateral and apex segments were hypokinetic. Mild pulmonary artery hypertension. Due to wall motion abnormalities she underwent left heart cath on 11/08/15. The left heart demonstrated a right dominant coronary anatomy with mild proximal and mid right coronary artery disease. The LAD stents were patent. There was mild mid LAD disease. Cardiology recommended continuing on aspirin 81 mg daily for life and ticagrelor 90 mg BID for life. Patient was prescribed sublingual nitroglycerin CODE STATUS; full code Acute kidney injury; question etiology--status post contrast one week ago, questionable ATN, hold all NSAIDs, holding vancomycin, gentle IV fluids, reassess in a.m. Bacteremia, exact etiology unknown-possible left upper leg cellulitis, improving. Cannot rule out early endocarditis with initial presentation of chest pain. Blood cultures positive for staphylococcus aureus. Vancomycin trough quite elevated, pharmacy consulted, we'll be holding. Zosyn was discontinued. Acute diarrhea--much improved Stool for Cdiff negative. Started on probiotics daily. imodium PRN for loose stools. Hypokalemia--resolved. Will monitor. Cellulitis,, improving Anemia, hyperchromic macrocytic without anisocytosis and/or early form of iron deficiency anemia. TSH 2.3. AST and ALT normal. ALK phos elevated at 158-could be cause of macrocytic anemia. WBC and platelets have been normal. Will continue to monitor this. Continue oral iron therapy as total iron low, but reticulocyte count normal. History of NSTEMI--this admission, type 2. Troponin normal and EKG revealed no ST segment elevation. Chest pain-free. Continue aspirin and toprol XL. She will need ECHO as soon as available to rule out endocarditis-- SECONDARY ASSESSMENT/PLAN: Anxiety, stable. Continue current medication regimen. Congestive heart failure (HFpEF). ECHO (October 2015) ejection fraction 55%, normal systolic function, normal left ventricle size, apical anterior, apical septal, apical inferior, apical lateral and apex segments were hypokinetic. Recent BNP of 613. Not on oral diuretic. Discuss low-dose LIDA inhibitor on follow-up. Coronary artery disease. Had been on Brillinta for 2 years due to stent placement. Left heart cath on 11/08/15 demonstrated right dominant coronary anatomy with mild proximal and mid-right coronary artery disease. LAD stents were patent. There was mild mid-LAD disease. On aspirin. Hyperlipidemia. On lipitor. GERD. Continue omeprazole. Restless leg syndrome. Continue requip and however holding baclofen at this time due to acute renal injury. DVT prophylaxis. On lovenox--reduce dose due to acute kidney injury Overall plan: Holding Vancomycin; gentle IV fluids, placed in swing bed today, monitor creatinine, hold all nephrotoxic agents, reduce Lovenox
[2016-07-17] MEDS: Acetaminophen 650 MG Tab.ER PO SCH ×2 (13:04→20:17)
[2016-07-17] MEDS: Iron Polysaccharides Complex 150 MG Cap PO SCH (13:04)
[2016-07-17] MEDS: Enoxaparin 30 MG/0.3 ML Syringe SUBCUT SCH (13:05)
[2016-07-17] MEDS: Sodium Chloride 0.9% 1,000 ML IV SCH (14:04)
[2016-07-17] MEDS: Potassium Chloride 10 MEQ Tab.ER PO SCH (17:27)
[2016-07-17] MEDS: rOPINIRole 0.25 MG Tab PO SCH (20:18)
[2016-07-17] MEDS: busPIRone 5 MG Tab PO SCH (20:18)
[2016-07-17] MEDS: LORazepam 0.5 MG Tab PO SCH (20:21)
[2016-07-17] MEDS ORDERED: DULoxetine 30 MG Cap PO SCH (21:00)
[2016-07-18] MEDS: Sodium Chloride 0.9% 1,000 ML IV SCH (05:24)
[2016-07-18] MEDS: Omeprazole 20 MG Cap.CR PO SCH ×2 (05:26→06:18)
[2016-07-18 06:19] VITALS: BP 128/68
[2016-07-18] MEDS ORDERED: Aspirin 81 MG Tab.EC PO SCH (08:00)
[2016-07-18] MEDS: LORazepam 0.5 MG Tab PO SCH (08:34)
[2016-07-18] MEDS: busPIRone 5 MG Tab PO SCH (08:37)
[2016-07-18] MEDS: Potassium Chloride 10 MEQ Tab.ER PO SCH (08:37)
[2016-07-18] MEDS: rOPINIRole 0.25 MG Tab PO SCH (08:38)
[2016-07-18] MEDS: Acetaminophen 650 MG Tab.ER PO SCH ×2 (08:40→12:48)
[2016-07-18] MEDS ORDERED: Docusate Sodium 100 MG Cap PO SCH (09:00)
[2016-07-18] MEDS ORDERED: B.Bifidum/B.Longum/L.Acidophilus/L.Rhamnosus (Probiotic) Cap PO SCH (09:00)
[2016-07-18] MEDS ORDERED: Calcium Citrate/Vitamin D3 315 MG-250 Unit Tab PO SCH (09:00)
[2016-07-18] MEDS ORDERED: Metoprolol Succinate 50 MG Tab.ER PO SCH (09:00)
[2016-07-18] MEDS ORDERED: Cholecalciferol (Vitamin D3) 1,000 Unit Tab PO SCH (09:00)
--- NOTE | 2016-07-18 12:43 | PCM.DCSUM1 ---
Discharge Summary - Hospital Course Brief History: 76 year-old female patient was initially admitted into acute care due to a mild non-STEMI and bacteremia likely due to from cellulitis and then eventually switched to swing bed. Patient initially came into the ED over a week ago complaining of left leg pain however upon arrival to her house she started complaining of chest pain and shortness of breath. She has an extensive cardiovascular history with history of WA in with history of CVA which she uses a walker. She was admitted to acute care on telemetry and it was noted that she had a small type II non-STEMI myocardial infarction--treated demand ischemic protocol with maximum conservative medical therapy. Her initial EKG showed sinus rhythm with deep Q waves in inferior leads likely old infarct. Chest x-ray was no acute findings. It was determined that she did have an aerobic and anaerobic blood culture growing Staphylococcus aureus undetermined if MRSA (still pending from [facility] lab as of today) however she was started on broad-spectrum antibiotics along with vancomycin. She did have elevated vancomycin trough at 30 pharmacy was consulted, holding doses due to acute renal injury. Patient also had chest CT on admission with contrast. Nonsteroidals and all nephrotoxins placed on hold day of swing bed admission. The source of her bacteremia is unknown etiology possible cellulitis upper inner thigh. Patient does admit to having lots of ants in her home including ant bites however these were on her right arm--however no cellulitis was detected on upon admission to her right arm. A bladder scan showed 70 mL in bladder, patient appears euvolemic, does have periods of incontinence, She has been placed on IV fluids however due to acutely elevated creatinine level one call cash register operator was consulted and he recommends transfer to patient to high- level care. - Discharge Data Discharge Date: 07/18/16 Discharge Disposition: Home, Self-Care 01 Condition: Fair - Patient Summary/Data Complications: Acutely elevated creatinine likely due to ATN/received contrast one week ago, however had normal renal indices up until yesterday had elevated vancomycin trough at 30. Producing urine Consults: Consultations 07/17/16 10:29 Consult to [facility] [CONS] Routine PT Evaluation and Treatment [CONS] Routine Hospital Course: See history for full complement of hospital stay. - Discharge Plan Home Medications: Home Meds Alendronate [Fosamax] 70 mg PO TH 09/20/14 [History] Cholecalciferol (Vitamin D3) [Vitamin D3] 2,000 unit PO DAILY 09/20/14 [History] DULoxetine [Cymbalta] 30 mg PO BID 09/20/14 [History] Docusate Sodium [Colace] 200 mg PO DAILY 09/20/14 [History] atorvaSTATin [Lipitor] 60 mg PO DAILY 09/20/14 [History] LORazepam [Ativan] 0.25 mg PO BID PRN #0 tablet 10/05/14 [Rx] Calcium Carbonate/Vitamin D3 [Calcium 600-Vit D3 800 Tablet] 1 each PO DAILY [History] Aspirin [Halfprin] 81 mg PO BRK 11/07/15 [History] Metoprolol Succinate [Toprol XL 50mg] 75 tab PO DAILY 11/07/15 [History] Misoprostol 200 mcg PO BID 11/07/15 [History] busPIRone [Buspar] 5 mg PO BID 11/07/15 [History] rOPINIRole HCl [Requip] 0.25 mg PO BID 11/07/15 [History] Baclofen [Lioresal] 10 mg PO BEDTIME PRN 02/29/16 [History] Diclofenac Sodium [Voltaren] 50 mg PO BID 02/29/16 [History] Loratadine/Pseudoephedrine [Loratadine-Pseudoephed 10-240] 1 tab PO BEDTIME PRN 02/29/16 [History] Nitroglycerin [Nitrostat] 0.4 mg SL ASDIRECTED PRN 02/29/16 [History] Omeprazole 40 mg PO ACBREAKFAST 02/29/16 [History] - Discharge Summary/Plan Comment DC Time >30 min.: Yes Discharge Summary/Plan Comment: Patient will be transferred to [facility], hospitalist one call accepting--will need nephrology consultation FINAL DIAGNOSIS Acute kidney injury; question etiology--status post contrast one week ago for chest CT/PE protocol, questionable ATN, hold all NSAIDs, holding vancomycin, gentle IV fluids, reassess in a.m. [address] will place in [place] catheter for accurate output Bacteremia, exact etiology unknown-possible left upper leg cellulitis, improving. Cannot rule out early endocarditis with initial presentation of chest pain. Blood cultures positive for staphylococcus aureus. Vancomycin trough quite elevated, pharmacy consulted, we'll be holding. Zosyn was discontinued. Acute diarrhea--much improved Stool for Cdiff negative. Started on probiotics daily. imodium PRN for loose stools. Hypokalemia--resolved. Will monitor. Cellulitis,, improving Anemia, hyperchromic macrocytic without anisocytosis and/or early form of iron deficiency anemia. TSH 2.3. AST and ALT normal. ALK phos elevated at 158-could be cause of macrocytic anemia. WBC and platelets have been normal. Will continue to monitor this. Continue oral iron therapy as total iron low, but reticulocyte count normal. History of NSTEMI--this admission, type 2. Troponin normal and EKG revealed no ST segment elevation. Chest pain-free. Continue aspirin and toprol XL. She will need ECHO as soon as available to rule out endocarditis-- Congestive heart failure (HFpEF). ECHO (October 2015) ejection fraction 55%, normal systolic function, normal left ventricle size, apical anterior, apical septal, apical inferior, apical lateral and apex segments were hypokinetic. Recent BNP of 613. Not on oral diuretic. Discuss low-dose LIDA inhibitor on follow-up however renal indices acutely elevated. Coronary artery disease. Had been on Brillinta for 2 years due to stent placement. Left heart cath on 11/08/15 demonstrated right dominant coronary anatomy with mild proximal and mid-right coronary artery disease. LAD stents were patent. There was mild mid-LAD disease. On aspirin. Secondary final diagnosis. Anxiety, Hyperlipidemia. GERD. Restless leg syndrome. - Patient Data Vitals - Most Recent: Last Vital Signs Temp 97.2 F 07/18/16 06:18 Pulse 76 07/18/16 08:55 Resp 18 07/18/16 06:18 BP 128/68 07/18/16 08:38 Pulse Ox 97 07/18/16 07:00 Weight - Most Recent: 151 lb 6.4 oz I&O - Last 24 hours: Intake & Output 07/17/16 07/18/16 07/18/16 22:59 06:59 14:59 Intake Total 702 572 Balance 702 572 Lab Results - Last 24 hrs: Laboratory Results - last 24 hr 07/18/16 07/18/16 Range/Units 07:35 07:35 WBC 8.9 (5.0-10.0) 10^3/uL RBC 2.80 L (3.80-5.50) 10^6/uL Hgb 9.0 L (12.0-16.0) g/dL Hct 26.5 L (37.0-47.0) % MCV 94.8 H (82.0-92.0) fL MCH 32.3 H (27.0-31.0) pg MCHC 34.0 (32.0-36.0) g/dL RDW 13.5 (11.5-14.5) % Plt Count 351 H (150-300) 10^3/uL MPV 7.1 L (7.4-10.4) fL Neut % (Auto) 81.6 H (50.0-70.0) % Lymph % (Auto) 10.6 L (20.0-40.0) % [place] % (Auto) 4.9 (2.0-8.0) % Eos % (Auto) 2.1 (1.0-3.0) % Baso % (Auto) 0.8 (0.0-1.0) % Neut # (Auto) 7.3 H (2.5-7.0) 10^3/uL Lymph # (Auto) 0.9 L (1.0-4.0) 10^3/uL [place] # (Auto) 0.4 (0.1-0.8) 10^3/uL Eos # (Auto) 0.2 (0.1-0.3) 10^3/uL Baso # (Auto) 0.1 (0.0-0.1) 10^3/uL Sodium 144 (136-145) mmol/L Potassium 4.1 (3.3-5.3) mmol/L Chloride 109 (98-115) mmol/L Carbon Dioxide 23.1 (21.0-32.0) mmol/L BUN 16 (6-25) mg/dL Creatinine 2.73 H (0.51-1.17) mg/dL Est Cr Clr Drug Dosing 14.95 mL/min Estimated GFR (MDRD) 17 mL/min Glucose 105 (70-110) mg/dL Calcium 8.6 L (8.7-10.3) mg/dL Random Vancomycin 23.1 ug/mL Med Orders - Current: Current Medications Acetaminophen (Tylenol Arthritis Pain) 650 mg PO TID RICK Last Admin: 05/09/17 08:40 Dose: 650 mg Alendronate Sodium (Fosamax) 70 mg PO Th@0600 [facility] Aspirin (Halfprin) 81 mg PO BRK [facility] Last Admin: 07/18/16 08:37 Dose: 81 mg Baclofen (Lioresal) 10 mg PO BEDTIME PRN PRN Reason: Muscle Spasm Buspirone HCl (Buspar) 5 mg PO BID [facility] Last Admin: 07/18/16 08:37 Dose: 5 mg Calcium Citrate (Calcium Citrate + D) 1 tab PO DAILY [facility] Last Admin: 07/18/16 08:37 Dose: 1 tab Cholecalciferol (Vitamin D3) 2,000 units PO DAILY [facility] Last Admin: 07/18/16 08:40 Dose: 2,000 units Ketoprofen 12 gm/ Menthol 1.8 gm/ Trolamine Salicylate 46.2 gm 0 gm TOP TID PRN PRN Reason: pain Docusate Sodium (Colace) 200 mg PO DAILY [facility] Last Admin: 07/18/16 08:38 Dose: Not Given Enoxaparin Sodium (Lovenox) 30 mg SUBCUT Q24H [facility] Last Admin: 07/17/16 13:05 Dose: 30 mg Vancomycin HCl 1 gm/ Sodium (Chloride) 270 mls @ 180 mls/hr IV Q48H [facility] Last Admin: 07/18/16 09:02 Dose: Not Given Sodium Chloride (Normal Saline) 1,000 mls @ 70 mls/hr IV ASDIRECTED [facility] Last Admin: 07/18/16 05:24 Dose: 70 mls/hr Lactobacillus Acidophilus/Rhamnosus (Multi-Cec[place] Plus) 1 cap PO DAILY [facility] Last Admin: 07/18/16 09:01 Dose: 1 cap Loperamide HCl (Imodium) 0 mg PO ASDIRECTED PRN PRN Reason: Diarrhea Last Admin: 07/17/16 13:08 Dose: 2 mg Loratadine (Claritin) 10 mg PO BEDTIME PRN PRN Reason: Allergies Lorazepam (Ativan) 0.25 mg PO BID [facility] Last Admin: 07/18/16 08:34 Dose: 0.25 mg Metoprolol Succinate (Toprol Xl) 75 mg PO DAILY [facility] Last Admin: 07/18/16 08:38 Dose: 75 mg Nitroglycerin (Nitrostat) 0.4 mg SL ASDIRECTED PRN PRN Reason: Chest Pain Omeprazole (Omeprazole) 40 mg PO ACBREAKFAST [facility] Last Admin: 07/18/16 06:18 Dose: Not Given Ondansetron HCl (Zofran) 4 mg IVPUSH Q4H PRN PRN Reason: Nausea/Vomiting Polysaccharide Iron Complex (Ferrex 150) 150 mg PO DAILY@1200 [facility] Last Admin: 07/17/16 13:04 Dose: 150 mg Potassium Chloride (Klor-Con 10) 10 meq PO BIDMEALS [facility] Last Admin: 07/18/16 08:37 Dose: 10 meq Ropinirole HCl (Requip) 0.25 mg PO BID [facility] Last Admin: 07/18/16 08:38 Dose: 0.25 mg Sodium Chloride (Syrex Flush) 5 ml FLUSH Q8HR PRN PRN Reason: Keep Vein Open Trolamine Salicylate (Aspercreme 10%) 0 gm TOP Q1H PRN PRN Reason: pain Last Admin: 07/17/16 20:21 Dose: 1 applic Vancomycin HCl (Pharmacy To Dose - Vancomycin) 0 dose .XX ASDIRECTED [facility] Discontinued Medications Duloxetine HCl (Cymbalta) 30 mg PO BID [facility] *Q Meaningful Use (DIS) - VTE *Q VTE Criteria *Q: - Stroke *Q Stroke Criteria *Q: - AMI *Q AMI Criteria *Q:
[2016-07-18] MEDS: Enoxaparin 30 MG/0.3 ML Syringe SUBCUT SCH (12:47)
[2016-07-18] MEDS: Iron Polysaccharides Complex 150 MG Cap PO SCH (12:47)
[2016-07-18] MEDS ORDERED: Sodium Chloride 0.9% 1,000 ML IV SCH (13:00)
[2016-07-20] MEDS ORDERED: Alendronate 70 MG Tab PO SCH (06:00)
== END 2016-07-18 14:00 | DRG 682 ==
LOC: KA.MS 10:30
PROVIDERS: ADMIT Nurse Practitioner Family; ATTEND Nurse Practitioner Family
DX: N17.9 Acute kidney failure, unspecified (principal); I21.4 Non-ST elevation (NSTEMI) myocardial infarction; R78.81 Bacteremia; L03.116 Cellulitis of left lower limb; I50.30 Unspecified diastolic (congestive) heart failure; B95.61 Methicillin susceptible Staphylococcus aureus infection as the cause of diseases classified elsewhere; R19.7 Diarrhea, unspecified; E87.6 Hypokalemia; D53.9 Nutritional anemia, unspecified; I25.10 Atherosclerotic heart disease of native coronary artery without angina pectoris; Z95.5 Presence of coronary angioplasty implant and graft; E78.5 Hyperlipidemia, unspecified; K21.9 Gastro-esophageal reflux disease without esophagitis; G25.81 Restless legs syndrome; F41.8 Other specified anxiety disorders; I10 Essential (primary) hypertension; Z91.040 Latex allergy status; Z79.899 Other long term (current) drug therapy; Z86.73 Personal history of transient ischemic attack (TIA), and cerebral infarction without residual deficits
CPT/HCPCS: 36415; 51798; 80048; 80202; 85025; 97110-GP; 97162-GP; A9270-GY; J1650; J7030

== ENCOUNTER 2021-07-11 13:20 | Emergency (ER) | payer MEDICARE, BC, MEDICAID ==
[2021-07-11] MEDS ORDERED: Sodium Chloride 0.9% 10 ML Syringe FLUSH PRN (13:33)
[2021-07-11 13:54] VITALS: PULSE 80
[2021-07-11] MEDS: Nitroglycerin 0.4 MG Tab.SL ONE ×2 (14:00→14:36)
[2021-07-11] MEDS: Nitroglycerin 0.4 MG Tab.SL SL PRN ×2 (14:00→14:15)
[2021-07-11 14:17] LABS: CHLORIDE,CL 100 mmol/L (98-107); SODIUM,NA 136 mmol/L (136-145)
[2021-07-11] MEDS ORDERED: Alum Hydrox/Mag Hydrox/Simeth 30 ML, Lidocaine 2% 15 ML PO ONE ×2 (14:36)
[2021-07-11 14:38] VITALS: BP 112/65
== END 2021-07-11 18:10 | disposition home or self-care (01) ==
LOC: KA.ED 13:20
DX: R07.89 Other chest pain (principal); I25.10 Atherosclerotic heart disease of native coronary artery without angina pectoris; I11.0 Hypertensive heart disease with heart failure; I50.9 Heart failure, unspecified; E78.00 Pure hypercholesterolemia, unspecified; I25.2 Old myocardial infarction; K21.9 Gastro-esophageal reflux disease without esophagitis; Z79.899 Other long term (current) drug therapy
CPT/HCPCS: 36415; 71045; 80053; 83880; 84484; 85025; 93005; 93010; 99284; 99285-25; A9270-GY

== ENCOUNTER 2022-03-07 20:12 | Emergency (ER) | payer MEDICARE, BC, MEDICAID ==
[2022-03-07] MEDS: Aspirin 81 MG Tab.Chew PO SCH (20:23)
[2022-03-07] MEDS: Morphine 2 MG/ML SYRINGE IVPUSH ONE (20:34)
[2022-03-07] MEDS: Aspirin 81 MG Tab.Chew ONE (20:40)
[2022-03-07] MEDS: Sodium Chloride 0.9% 10 ML Syringe FLUSH PRN (20:40)
[2022-03-07 20:53] LABS: ANION GAP 9.8 mmol/L (5-15)
[2022-03-07] MEDS: Alum Hydrox/Mag Hydrox/Simeth 30 ML, Lidocaine 2% 15 ML PO ONE ×2 (21:09)
[2022-03-08 00:32] VITALS: BP 122/72; PULSE 76
[2022-03-08] MEDS ORDERED: Aspirin 81 MG Tab.Chew PO ONE (20:19)
== END 2022-03-08 08:12 ==
LOC: SUPCPDRO 20:12 → KA.ED 20:12
DX: R07.89 Other chest pain (principal); I25.10 Atherosclerotic heart disease of native coronary artery without angina pectoris; E78.00 Pure hypercholesterolemia, unspecified; I11.0 Hypertensive heart disease with heart failure; I50.9 Heart failure, unspecified; K21.9 Gastro-esophageal reflux disease without esophagitis; Z86.73 Personal history of transient ischemic attack (TIA), and cerebral infarction without residual deficits; Z88.0 Allergy status to penicillin; Z88.2 Allergy status to sulfonamides; Z91.040 Latex allergy status; Z79.899 Other long term (current) drug therapy; Z79.82 Long term (current) use of aspirin
CPT/HCPCS: 36415; 71045; 80053; 84484; 85025; 93005; 96374; 99285; A9270; J2270; J3490

== ENCOUNTER 2023-10-15 21:34 | Emergency (ER) | payer MEDICARE, MEDICAID ==
[2023-10-15 21:56] LABS: BASOPHILS ABSOLUTE AUTO 0.02 10^3/uL (0.00-0.10); BASOPHILS PERCENT AUTO 0.2 % (0.0-1.0); EOSINOPHILS ABSOLUTE AUTO 0.06 10^3/uL (0.10-0.30); EOSINOPHILS PERCENT AUTO 0.7 % (1.0-3.0); HEMATOCRIT 36.6 % (37.0-47.0); HEMOGLOBIN 12.2 g/dL (12.0-16.0); IMMATURE GRAN ABSOLUTE AUTO 0.01 10^3/uL (0.00-0.50); IMMATURE GRAN PERCENT AUTO 0.1 % (0.0-5.0); LYMPHOCYTES ABSOLUTE AUTO 1.21 10^3/uL (1.00-4.00); MEAN CORPUSCULAR HEMOGLOBIN 33.1 pg (27.0-31.0); MEAN CORPUSCULAR HGB CONC 33.3 g/dL (32.0-36.0); MEAN CORPUSCULAR VOLUME 99.2 fL (82.0-92.0); MEAN PLATELET VOLUME 9.3 fL (7.4-10.4); MONOCYTES ABSOLUTE AUTO 0.55 10^3/uL (0.10-0.80); MONOCYTES PERCENT AUTO 6.4 % (2.0-8.0); NEUTROPHILS ABSOLUTE AUTO 6.77 10^3/uL (2.50-7.00); NEUTROPHILS PERCENT AUTO 78.6 % (50.0-70.0); PLATELET COUNT,PLT 179 10^3/uL (150-400); RED BLOOD CELL COUNT 3.69 10^6/uL (3.80-5.50); RED CELL DISTRIBUTION WIDTH 12.7 % (11.5-14.5); WHITE BLOOD CELL COUNT,WBC 8.62 10^3/uL (5.00-10.00)
[2023-10-15 22:08] LABS: ALBUMIN 3.55 g/dL (3.40-5.00); BILIRUBIN TOTAL 0.4 mg/dL (0.2-1.0); CALCIUM 8.7 mg/dL (8.7-10.3); CARBON DIOXIDE,CO2 30.3 mmol/L (21.0-32.0); CREATININE 0.75 mg/dL (0.51-1.17); EST CRCL DRUG DOSING (CG) 50.8 mL/min; POTASSIUM,K 4.3 mmol/L (3.5-5.1); PROTEIN TOTAL,TP 6.4 g/dL (6.4-8.2)
[2023-10-15 22:39] VITALS: BP 127/68; PULSE 72
== END 2023-10-15 23:15 ==
LOC: KA.ED 21:34
DX: R00.2 Palpitations (principal); F41.8 Other specified anxiety disorders; E78.00 Pure hypercholesterolemia, unspecified; I50.9 Heart failure, unspecified; I25.10 Atherosclerotic heart disease of native coronary artery without angina pectoris; Z86.16 Personal history of COVID-19; Z90.710 Acquired absence of both cervix and uterus; Z79.899 Other long term (current) drug therapy; Z79.82 Long term (current) use of aspirin; Z88.2 Allergy status to sulfonamides; Z88.0 Allergy status to penicillin; Z91.040 Latex allergy status
CPT/HCPCS: 36415; 71045; 80053; 83880; 84484; 85025; 93010; 99284

== ENCOUNTER 2024-01-12 11:29 | Emergency (ER) | payer OTHER, MEDICAID ==
[2024-01-12 12:07] LABS: BASOPHILS ABSOLUTE AUTO 0.03 10^3/uL (0.00-0.10); BASOPHILS PERCENT AUTO 0.4 % (0.0-1.0); EOSINOPHILS ABSOLUTE AUTO 0.09 10^3/uL (0.10-0.30); EOSINOPHILS PERCENT AUTO 1.3 % (1.0-3.0); HEMATOCRIT 40.2 % (37.0-47.0); HEMOGLOBIN 13.3 g/dL (12.0-16.0); IMMATURE GRAN ABSOLUTE AUTO 0.01 10^3/uL (0.00-0.50); IMMATURE GRAN PERCENT AUTO 0.1 % (0.0-5.0); LYMPHOCYTES PERCENT AUTO 25.4 % (20.0-40.0); MEAN CORPUSCULAR HEMOGLOBIN 32.9 pg (27.0-31.0); MEAN CORPUSCULAR HGB CONC 33.1 g/dL (32.0-36.0); MEAN CORPUSCULAR VOLUME 99.5 fL (82.0-92.0); MEAN PLATELET VOLUME 8.8 fL (7.4-10.4); MONOCYTES PERCENT AUTO 8.5 % (2.0-8.0); NEUTROPHILS ABSOLUTE AUTO 4.57 10^3/uL (2.50-7.00); NEUTROPHILS PERCENT AUTO 64.3 % (50.0-70.0); PLATELET COUNT,PLT 210 10^3/uL (150-400); RED BLOOD CELL COUNT 4.04 10^6/uL (3.80-5.50); RED CELL DISTRIBUTION WIDTH 12.8 % (11.5-14.5)
[2024-01-12 12:20] LABS: ALBUMIN 4.02 g/dL (3.40-5.00); BILIRUBIN TOTAL 0.7 mg/dL (0.2-1.0); CALCIUM 9.1 mg/dL (8.7-10.3); CARBON DIOXIDE,CO2 29.1 mmol/L (21.0-32.0); CREATININE 0.84 mg/dL (0.51-1.17); EST CRCL DRUG DOSING (CG) 44.76 mL/min; POTASSIUM,K 4.1 mmol/L (3.5-5.1); PROTEIN TOTAL,TP 6.8 g/dL (6.4-8.2)
[2024-01-12 12:28] LABS: INR 0.9 (0.9-1.1)
[2024-01-12] MEDS ORDERED: Sodium Chloride 0.9% 1,000 ML IV SCH (12:45)
[2024-01-12] MEDS: Sodium Chloride 0.9% 1,000 ML IV ONE (12:45)
[2024-01-12] MEDS: Tenecteplase 50 MG Kit IVPUSH ONE (13:19)
[2024-01-12] MEDS: Sodium Chloride 0.9% 1,000 ML ONE (17:23)
[2024-01-13 07:35] VITALS: BP 133/70; PULSE 64
== END 2024-01-12 13:23 ==
LOC: KA.ED 11:29
DX: R29.810 Facial weakness (principal); R53.1 Weakness; R47.81 Slurred speech; I25.10 Atherosclerotic heart disease of native coronary artery without angina pectoris; I11.0 Hypertensive heart disease with heart failure; I50.9 Heart failure, unspecified; K21.9 Gastro-esophageal reflux disease without esophagitis; Z86.73 Personal history of transient ischemic attack (TIA), and cerebral infarction without residual deficits; Z86.16 Personal history of COVID-19; Z90.710 Acquired absence of both cervix and uterus; Z79.899 Other long term (current) drug therapy; Z91.040 Latex allergy status; Z88.0 Allergy status to penicillin; Z88.2 Allergy status to sulfonamides; Z79.82 Long term (current) use of aspirin; I25.2 Old myocardial infarction
CPT/HCPCS: 70450; 80053; 82947; 84484; 85025; 85610; 85730; 96361; 96374; 99285; J3101; J7030; Q3014

== ENCOUNTER 2024-02-29 06:13 | Emergency (ER) | payer OTHER, MEDICAID ==
[2024-02-29] MEDS ORDERED: Sodium Chloride 0.9% 10 ML Syringe FLUSH PRN (06:15)
[2024-02-29 06:34] LABS: BASOPHILS ABSOLUTE AUTO 0.03 10^3/uL (0.00-0.10); BASOPHILS PERCENT AUTO 0.6 % (0.0-1.0); EOSINOPHILS ABSOLUTE AUTO 0.08 10^3/uL (0.10-0.30); EOSINOPHILS PERCENT AUTO 1.5 % (1.0-3.0); HEMATOCRIT 43.4 % (37.0-47.0); HEMOGLOBIN 14.3 g/dL (12.0-16.0); IMMATURE GRAN ABSOLUTE AUTO 0.02 10^3/uL (0.00-0.04); IMMATURE GRAN PERCENT AUTO 0.4 % (0.0-0.4); LYMPHOCYTES ABSOLUTE AUTO 1.25 10^3/uL (1.00-4.00); LYMPHOCYTES PERCENT AUTO 23.7 % (20.0-40.0); MEAN CORPUSCULAR HEMOGLOBIN 32.2 pg (27.0-31.0); MEAN CORPUSCULAR HGB CONC 32.9 g/dL (32.0-36.0); MEAN CORPUSCULAR VOLUME 97.7 fL (82.0-92.0); MEAN PLATELET VOLUME 8.7 fL (7.4-10.4); MONOCYTES ABSOLUTE AUTO 0.38 10^3/uL (0.10-0.80); MONOCYTES PERCENT AUTO 7.2 % (2.0-8.0); NEUTROPHILS ABSOLUTE AUTO 3.52 10^3/uL (2.50-7.00); NEUTROPHILS PERCENT AUTO 66.6 % (50.0-70.0); PLATELET COUNT,PLT 209 10^3/uL (150-400); RED BLOOD CELL COUNT 4.44 10^6/uL (3.80-5.50); RED CELL DISTRIBUTION WIDTH 13.1 % (11.5-14.5); WHITE BLOOD CELL COUNT,WBC 5.28 10^3/uL (5.00-10.00)
[2024-02-29 06:51] LABS: ALANINE AMINOTRANSFERASE,ALT 15 U/L (14-63); ALBUMIN 3.83 g/dL (3.40-5.00); ALKALINE PHOSPHATASE 77 U/L (46-116); ANION GAP 14.5 mmol/L (5-15); ASPARTATE AMNIOTRANSFERASE,AST 19 U/L (15-37); BILIRUBIN TOTAL 0.7 mg/dL (0.2-1.0); BLOOD UREA NITROGEN,BUN 7 mg/dL (7-18); CALCIUM 8.9 mg/dL (8.7-10.3); CARBON DIOXIDE,CO2 30.5 mmol/L (21.0-32.0); CHLORIDE,CL 99 mmol/L (98-107); ESTIMATED GFR 90 mL/min (>=60); GLUCOSE RANDOM 114 mg/dL (70-140); PROTEIN TOTAL,TP 7.3 g/dL (6.4-8.2); SODIUM,NA 141 mmol/L (136-145)
[2024-02-29 06:52] LABS: PROTHROMBIN TIME 10.2 SEC (9.3-12.2); PTT,PARTIAL THROMBOPLSTIN TIME 23.4 SEC (23.3-34.9)
[2024-02-29] MEDS: NS + KCl 20mEq/L 1,000 ML IV SCH (07:33)
[2024-02-29 07:57] LABS: APPEARANCE,URINE CLOUDY (CLEAR); BILIRUBIN,URINE NEGATIVE (NEGATIVE); COLOR,URINE YELLOW (YELLOW); GLUCOSE,URINE NEGATIVE (NEGATIVE); KETONES,URINE NEGATIVE (NEGATIVE); LEUKOCYTE ESTERASE,URINE NEGATIVE (NEGATIVE); NITRITE,URINE POSITIVE (NEGATIVE); OCCULT BLOOD,URINE TRACE-INTACT (NEGATIVE); PH,URINE 7.5 (5.0-9.0); PROTEIN,URINE NEGATIVE (NEGATIVE); UROBILINOGEN,URINE 0.2 E.U./dL (0.2-1.0)
[2024-02-29 08:00] LABS: BACTERIA,URINE MANY /HPF (NONE TO FEW); EPITHELIAL CELLS,URINE MODERATE /LPF; RBC,URINE 0-5 /HPF (0-5); WBC,URINE 0-5 /HPF (0-5)
[2024-02-29] MEDS: Cephalexin 250 MG Cap PO ONE (08:35)
[2024-02-29 10:01] LABS: POTASSIUM,K 3.6 mmol/L (3.5-5.1)
[2024-02-29 10:59] VITALS: BP 172/79; PULSE 82
== END 2024-02-29 11:00 ==
LOC: KA.ED 06:13
DX: N30.01 Acute cystitis with hematuria (principal); E87.6 Hypokalemia; I25.10 Atherosclerotic heart disease of native coronary artery without angina pectoris; I25.2 Old myocardial infarction; I11.0 Hypertensive heart disease with heart failure; I50.9 Heart failure, unspecified; E78.00 Pure hypercholesterolemia, unspecified; J44.9 Chronic obstructive pulmonary disease, unspecified; K21.9 Gastro-esophageal reflux disease without esophagitis; M19.90 Unspecified osteoarthritis, unspecified site; Z86.16 Personal history of COVID-19; Z86.73 Personal history of transient ischemic attack (TIA), and cerebral infarction without residual deficits; Z90.710 Acquired absence of both cervix and uterus; Z88.0 Allergy status to penicillin; Z88.2 Allergy status to sulfonamides; Z91.040 Latex allergy status; Z79.51 Long term (current) use of inhaled steroids; Z79.82 Long term (current) use of aspirin; Z79.899 Other long term (current) drug therapy
CPT/HCPCS: 36415; 70450; 80053; 81001; 84132; 84484; 85025; 85610; 85730; 93005; 96365; 96366; 99285-25; A9270-GY; J3480

== ENCOUNTER 2024-09-11 14:40 | Emergency (ER) | payer MEDICARE, MEDICAID ==
[2024-09-11 17:41] LABS: BASOPHILS ABSOLUTE AUTO 0.02 10^3/uL (0.00-0.10); BASOPHILS PERCENT AUTO 0.3 % (0.0-1.0); EOSINOPHILS ABSOLUTE AUTO 0.06 10^3/uL (0.10-0.30); EOSINOPHILS PERCENT AUTO 0.9 % (1.0-3.0); IMMATURE GRAN ABSOLUTE AUTO 0.01 10^3/uL (0.00-0.04); IMMATURE GRAN PERCENT AUTO 0.1 % (0.0-0.4); LYMPHOCYTES ABSOLUTE AUTO 1.58 10^3/uL (1.00-4.00); LYMPHOCYTES PERCENT AUTO 22.8 % (20.0-40.0); MEAN PLATELET VOLUME 8.8 fL (7.4-10.4); MONOCYTES ABSOLUTE AUTO 0.48 10^3/uL (0.10-0.80); MONOCYTES PERCENT AUTO 6.9 % (2.0-8.0); NEUTROPHILS ABSOLUTE AUTO 4.79 10^3/uL (2.50-7.00); NEUTROPHILS PERCENT AUTO 69.0 % (50.0-70.0); PLATELET COUNT,PLT 170 10^3/uL (150-400); RED BLOOD CELL COUNT 3.98 10^6/uL (3.80-5.50); RED CELL DISTRIBUTION WIDTH 13.2 % (11.5-14.5); WHITE BLOOD CELL COUNT,WBC 6.94 10^3/uL (5.00-10.00)
[2024-09-11 17:58] LABS: ALANINE AMINOTRANSFERASE,ALT 23.0 U/L (14-63); ASPARTATE AMNIOTRANSFERASE,AST 28.0 U/L (15-37); BILIRUBIN TOTAL 0.6 mg/dL (0.2-1.0); BLOOD UREA NITROGEN,BUN 21.0 mg/dL (7-18); CARBON DIOXIDE,CO2 27.1 mmol/L (21.0-32.0); CHLORIDE,CL 104.0 mmol/L (98-107); CREATININE 0.57 mg/dL (0.51-1.17); EST CRCL DRUG DOSING (CG) 71.24 mL/min; ESTIMATED GFR 91.0 mL/min (>=60); GLUCOSE RANDOM 104.0 mg/dL (70-140); POTASSIUM,K 4.3 mmol/L (3.5-5.1); PROTEIN TOTAL,TP 6.8 g/dL (6.4-8.2); SODIUM,NA 142.0 mmol/L (136-145)
[2024-09-11 18:08] LABS: INR 0.9 (0.9-1.1); PTT,PARTIAL THROMBOPLSTIN TIME 22.3 SEC (21.6-32.4)
[2024-09-11] MEDS: [UNRECOGNIZED DRUG - OTHER] IV ONE (18:29)
[2024-09-11] MEDS: HUM PROTHROMBIN CPLX 1000 UNIT IV ONE (18:29)
[2024-09-11 19:00] VITALS: PULSE 80
[2024-09-11 19:01] VITALS: BP 154/94
== END 2024-09-11 18:50 ==
LOC: KA.ED 14:45
DX: S06.5X0A Traumatic subdural hemorrhage without loss of consciousness, initial encounter (principal); S00.81XA Abrasion of other part of head, initial encounter; Z79.01 Long term (current) use of anticoagulants; Z88.0 Allergy status to penicillin; Z88.2 Allergy status to sulfonamides; Z91.040 Latex allergy status; Z79.899 Other long term (current) drug therapy; W07.XXXA Fall from chair, initial encounter
CPT/HCPCS: 70450; 73030-LT; 80053; 85025; 85610; 85730; 96374; 99285-25; J7168